=== PATIENT | male | born 1970 | race Caucasian/White ===

== ENCOUNTER 2018-09-25 22:08 | Inpatient (IN) | payer OTHER ==
[~2018-09-25] VITALS: Ht 180.3 cm; Wt 92.5 kg
[2018-09-25] MEDS ORDERED: HEPARIN for IV BOLUS 10,000 UNIT/10 ML VIAL. ONE (22:18)
[2018-09-25] MEDS ORDERED: fentaNYL PF VIAL 100 MCG/2 ML VIAL ONE ×2 (22:19→22:48)
[2018-09-25] MEDS ORDERED: NITROGLYCERIN SUBLINGUAL 0.4 MG BOTTLE OF 25. SL ONE (22:27)
[2018-09-25 22:30] LABS: BASO # 0.1 x10^3/uL (0.0-0.2); BASO % 1 % (0-3); EOS # 0.2 x10^3/uL (0.0-0.7); EOS % 2 % (0-3); HEMATOCRIT 51.1 % (39.0-53.0); HEMOGLOBIN 17.2 g/dL (13.0-17.5); LYMPH # 2.2 x10^3/uL (1.0-4.8); LYMPH % 21 % (24-48); MEAN CORPUSCULAR HEMOGLOBIN 30 pg (25-35); MEAN CORPUSCULAR HGB CONC 34 g/dL (31-37); MEAN CORPUSCULAR VOLUME 89 fL (79-100); MONO # 1.1 x10^3/uL (0.0-1.1); MONO % 10 % (0-9); NEUT # 7.3 x10^3uL (1.8-7.7); NEUT % 67 % (31-73); PLATELET COUNT 185 x10^3/uL (140-400); RED BLOOD COUNT 5.72 x10^6/uL (4.30-5.70); RED CELL DISTRIBUTION WIDTH 13.7 % (11.5-14.5); WHITE BLOOD COUNT 10.9 x10^3/uL (4.0-11.0)
[2018-09-25] MEDS ORDERED: NITROGLYCERIN SUBLINGUAL 0.4 MG BOTTLE OF 25. SL PRN ×2 (22:30)
[2018-09-25] MEDS ORDERED: fentaNYL PF VIAL 100 MCG/2 ML VIAL IV ONE ×2 (22:30→23:45)
[2018-09-25] MEDS ORDERED: ASPIRIN CHEWABLE 81 MG TABLET. PO ONE (22:30)
[2018-09-25] MEDS ORDERED: HEPARIN for IV BOLUS 10,000 UNIT/10 ML VIAL. IV ONE (22:30)
[2018-09-25 22:35] LABS: BARBITURATES NEG (NEG); BENZODIAZEPINES NEG (NEG); CANNABINOIDS NEG (NEG); COCAINE NEG (NEG); METHADONE NEG (NEG); OPIATES NEG (NEG); PHENCYCLIDINE NEG (NEG)
[2018-09-25 22:36] LABS: AMPHETAMINE/METHAMPHETAMINE NEG (NEG)
[2018-09-25 22:39] LABS: CALCIUM 9.9 mg/dL (8.5-10.1); CREATININE 1.3 mg/dL (0.7-1.3); GFR 58.4; POTASSIUM 3.6 mmol/L (3.5-5.1); PROTHROMBIN TIME PATIENT 12.3 SEC (11.7-14.0)
[2018-09-25] MEDS ORDERED: LIDOCAINE 1% Multi-Dose 20 ML VIAL. ONE (22:40)
[2018-09-25] MEDS ORDERED: IODIXANOL 320 MG/ML 100 ML VIAL. ONE ×2 (22:40→23:15)
[2018-09-25 22:46] LABS: ALBUMIN 4.2 g/dL (3.4-5.0); ALBUMIN/GLOBULIN RATIO 1.2 (1.0-1.7); MAGNESIUM 1.7 mg/dL (1.8-2.4); TOTAL BILIRUBIN 0.6 mg/dL (0.2-1.0); TOTAL PROTEIN 7.6 g/dL (6.4-8.2)
[2018-09-25] MEDS ORDERED: MIDAZOLAM HCL/PF 5 MG/5 ML VIAL. ONE (22:48)
[2018-09-25] MEDS ORDERED: BIVALIRUDIN 250 MG VIAL. IV ONE ×2 (22:48→23:45)
--- NOTE | 2018-09-25 22:53 | PDOC2 ---
CONSULT Date of Consult Date of Consult DATE: 09/25/18 TIME: 22:53 Reason for Consult Reason for Consult: acute myocardial infarction Referring Physician Referring Physician: Dr. Apple Identification/Chief Complaint Chief Complaint Chest pain Source Source: Chart review, Patient History of Present Illness Reason for Visit: 48-year-old male without any previous cardiac history presented with left-sided chest, shoulder and jaw pain starting one hour prior to presentation. This was associated with nausea and diaphoresis. He had similar episode yesterday night that resolved spontaneously. He has history of kidney transplantation approximately 10 years ago and has been on chronic immunosuppression. He has strong family history of premature coronary artery disease. Past Medical History Past Medical History Hypertension Renal insufficiency s/p kidney transplantation 10 years ago at [facility] Past Surgical History Past Surgical History Renal transplantation Family History Family History Strongly positive for premature coronary artery disease Social History Social History Patient she was tobacco occasionally and admitted to social intake of alcohol over the weekends but denied any drug abuse Current Medications Current Medications Current Medications Heparin Sodium (Porcine) (Heparin Sodium) 10,000 unit STK-MED ONCE .ROUTE ; Start 09/25/18 at 22:18; Stop 09/25/18 at 22:19; Status DC Fentanyl Citrate (Fentanyl 2ml Vial) 100 mcg STK-MED ONCE .ROUTE ; Start 09/25/18 at 22:19; Stop 09/25/18 at 22:20; Status DC Aspirin (Children'S Aspirin) 324 mg 1X ONCE PO Last administered on 09/25/18at 22:23; Start 09/25/18 at 22:30; Stop 09/25/18 at 22:33; Status DC Heparin Sodium (Porcine) (Heparin Sodium) 4,000 unit 1X ONCE IV Last administered on 09/25/18at 22:24; Start 09/25/18 at 22:30; Stop 09/25/18 at 22:33; Status DC Fentanyl Citrate (Fentanyl 2ml Vial) 50 mcg 1X ONCE IV Last administered on 09/25/18at 22:23; Start 09/25/18 at 22:30; Stop 09/25/18 at 22:33; Status DC Nitroglycerin (Nitrostat) 0.4 mg STK-MED ONCE SL ; Start 09/25/18 at 22:27; Stop 09/25/18 at 22:28; Status DC Nitroglycerin (Nitrostat) 0.4 mg PRN Q5MIN PRN SL CHEST PAIN Last administered on 09/25/18at 22:30; Start 09/25/18 at 22:30 Nitroglycerin (Nitrostat) 0.4 mg PRN Q5MIN PRN SL CHEST PAIN; Start 09/25/18 at 22:30 Iodixanol (Visipaque 320) 100 ml STK-MED ONCE .ROUTE ; Start 09/25/18 at 22:40; Stop 09/25/18 at 22:41; Status DC Lidocaine HCl (Lidocaine 1% 20ml Vial) 20 ml STK-MED ONCE .ROUTE ; Start 09/25/18 at 22:40; Stop 09/25/18 at 22:41; Status DC Heparin Sodium/ Sodium Chloride 1,000 ml @ As Directed STK-MED ONCE .ROUTE ; Start 09/25/18 at 22:40; Stop 09/25/18 at 22:41; Status DC Fentanyl Citrate (Fentanyl 2ml Vial) 100 mcg STK-MED ONCE .ROUTE ; Start 09/25/18 at 22:48; Stop 09/25/18 at 22:49; Status DC Midazolam HCl (Versed) 5 mg STK-MED ONCE .ROUTE ; Start 09/25/18 at 22:48; Stop 09/25/18 at 22:49; Status DC Bivalirudin (Angiomax) 250 mg STK-MED ONCE IV ; Start 09/25/18 at 22:48; Stop 09/25/18 at 22:49; Status DC Allergies Allergies: Coded Allergies: No Known Drug Allergies (Unverified , 02/02/15) ROS PSYCHOLOGICAL ROS: No: Hallucinations Eyes: No Loss of vision HEENT: No: Epistaxis Respiratory: No: Hemoptysis Cardiovascular: yes Chest Pain Gastrointestinal: Yes Nausea; No Vomiting Genitourinary: No Hematuria Neurological: No Seizures Skin: No Rash Physical Exam General: Alert, Oriented X3 HEENT: Atraumatic, PERRLA Lungs: Clear to auscultation Heart: Regular rate Abdomen: Soft, No tenderness Extremities: No edema Psych/Mental Status: Mood NL Vitals VITALS Vital Signs Date Time Temp Pulse Resp B/P (MAP) Pulse Ox O2 Delivery O2 Flow Rate FiO2 09/25/18 22:30 87 187/125 Labs Labs Laboratory Tests Test 09/25/18 22:20 White Blood Count 10.9 x10^3/uL (4.0-11.0) Red Blood Count 5.72 x10^6/uL (4.30-5.70) Hemoglobin 17.2 g/dL (13.0-17.5) Hematocrit 51.1 % (39.0-53.0) Mean Corpuscular Volume 89 fL (79-100) Mean Corpuscular Hemoglobin 30 pg (25-35) Mean Corpuscular Hemoglobin Concent 34 g/dL (31-37) Red Cell Distribution Width 13.7 % (11.5-14.5) Platelet Count 185 x10^3/uL (140-400) Neutrophils (%) (Auto) 67 % (31-73) Lymphocytes (%) (Auto) 21 % (24-48) Monocytes (%) (Auto) 10 % (0-9) Eosinophils (%) (Auto) 2 % (0-3) Basophils (%) (Auto) 1 % (0-3) Neutrophils # (Auto) 7.3 x10^3uL (1.8-7.7) Lymphocytes # (Auto) 2.2 x10^3/uL (1.0-4.8) Monocytes # (Auto) 1.1 x10^3/uL (0.0-1.1) Eosinophils # (Auto) 0.2 x10^3/uL (0.0-0.7) Basophils # (Auto) 0.1 x10^3/uL (0.0-0.2) Prothrombin Time 12.3 SEC (11.7-14.0) Prothromb Time International Ratio 0.9 (0.8-1.1) Sodium Level 139 mmol/L (136-145) Potassium Level 3.6 mmol/L (3.5-5.1) Chloride Level 101 mmol/L (98-107) Carbon Dioxide Level 30 mmol/L (21-32) Anion Gap 8 (6-14) Blood Urea Nitrogen 13 mg/dL (8-26) Creatinine 1.3 mg/dL (0.7-1.3) Estimated GFR (Cockcroft-Gault) 58.4 BUN/Creatinine Ratio 10 (6-20) Glucose Level 111 mg/dL (70-99) Calcium Level 9.9 mg/dL (8.5-10.1) Magnesium Level 1.7 mg/dL (1.8-2.4) Total Bilirubin 0.6 mg/dL (0.2-1.0) Aspartate Amino Transf (AST/SGOT) 37 U/L (15-37) Alanine Aminotransferase (ALT/SGPT) 42 U/L (16-63) Alkaline Phosphatase 83 U/L (46-116) Troponin I Quantitative 1.017 ng/mL (0.000-0.055) PO-Rhd-P-Type Natriuretic Peptide 1243 pg/mL (0-124) Total Protein 7.6 g/dL (6.4-8.2) Albumin 4.2 g/dL (3.4-5.0) Albumin/Globulin Ratio 1.2 (1.0-1.7) Urine Opiates Screen Neg (NEG) Urine Methadone Screen Neg (NEG) Urine Barbiturates Neg (NEG) Urine Phencyclidine Screen Neg (NEG) Urine Amphetamine/Methamphetamine Neg (NEG) Urine Benzodiazepines Screen Neg (NEG) Urine Cocaine Screen Neg (NEG) Urine Cannabinoids Screen Neg (NEG) Urine Ethyl Alcohol Neg (NEG) Laboratory Tests Test 09/25/18 22:20 White Blood Count 10.9 x10^3/uL (4.0-11.0) Red Blood Count 5.72 x10^6/uL (4.30-5.70) Hemoglobin 17.2 g/dL (13.0-17.5) Hematocrit 51.1 % (39.0-53.0) Mean Corpuscular Volume 89 fL (79-100) Mean Corpuscular Hemoglobin 30 pg (25-35) Mean Corpuscular Hemoglobin Concent 34 g/dL (31-37) Red Cell Distribution Width 13.7 % (11.5-14.5) Platelet Count 185 x10^3/uL (140-400) Neutrophils (%) (Auto) 67 % (31-73) Lymphocytes (%) (Auto) 21 % (24-48) Monocytes (%) (Auto) 10 % (0-9) Eosinophils (%) (Auto) 2 % (0-3) Basophils (%) (Auto) 1 % (0-3) Neutrophils # (Auto) 7.3 x10^3uL (1.8-7.7) Lymphocytes # (Auto) 2.2 x10^3/uL (1.0-4.8) Monocytes # (Auto) 1.1 x10^3/uL (0.0-1.1) Eosinophils # (Auto) 0.2 x10^3/uL (0.0-0.7) Basophils # (Auto) 0.1 x10^3/uL (0.0-0.2) Prothrombin Time 12.3 SEC (11.7-14.0) Prothromb Time International Ratio 0.9 (0.8-1.1) Sodium Level 139 mmol/L (136-145) Potassium Level 3.6 mmol/L (3.5-5.1) Chloride Level 101 mmol/L (98-107) Carbon Dioxide Level 30 mmol/L (21-32) Anion Gap 8 (6-14) Blood Urea Nitrogen 13 mg/dL (8-26) Creatinine 1.3 mg/dL (0.7-1.3) Estimated GFR (Cockcroft-Gault) 58.4 BUN/Creatinine Ratio 10 (6-20) Glucose Level 111 mg/dL (70-99) Calcium Level 9.9 mg/dL (8.5-10.1) Magnesium Level 1.7 mg/dL (1.8-2.4) Total Bilirubin 0.6 mg/dL (0.2-1.0) Aspartate Amino Transf (AST/SGOT) 37 U/L (15-37) Alanine Aminotransferase (ALT/SGPT) 42 U/L (16-63) Alkaline Phosphatase 83 U/L (46-116) Troponin I Quantitative 1.017 ng/mL (0.000-0.055) GG-Lve-R-Type Natriuretic Peptide 1243 pg/mL (0-124) Total Protein 7.6 g/dL (6.4-8.2) Albumin 4.2 g/dL (3.4-5.0) Albumin/Globulin Ratio 1.2 (1.0-1.7) Urine Opiates Screen Neg (NEG) Urine Methadone Screen Neg (NEG) Urine Barbiturates Neg (NEG) Urine Phencyclidine Screen Neg (NEG) Urine Amphetamine/Methamphetamine Neg (NEG) Urine Benzodiazepines Screen Neg (NEG) Urine Cocaine Screen Neg (NEG) Urine Cannabinoids Screen Neg (NEG) Urine Ethyl Alcohol Neg (NEG) Assessment/Plan Assessment/Plan 1. Acute anterior wall ST elevation myocardial infarction. Patient stated that his chest pain is almost completely resolved at this time. EKG showed left bundle branch block and anterior ST elevations. We will proceed with emergent cardiac catheterization and primary PCI/stent placement. Risks and benefits were explained and he is agreeable. Start aspirin, heparin, beta blockers and statins. 2. Hypertension: Blood pressure elevated upon admission but is presently well- controlled. 3. s/p Renal transplantation: On chronic immunosuppression Thank you for your consultation HENOK HOFFMAN MD Sep 25, 2018 22:53
--- NOTE | 2018-09-25 22:53 | PDOC ---
MODERATE SEDATION ASSESSMENT RISKS/ALTERNATIVES Risks/Alternatives Risks and alternatives of this type of sedation and procedure discussed with: RISK/ALTERNATIVES: Patient H & P ON CHART H & P H & P on chart and reviewed for co-morbid conditions and appropriate labs. H&P ON CHART: Yes STATUS PREG STATUS ASSESSED: N/A MEDS/ALLERGIES REVIEWED Meds/Allergies Reviewed Medications and Allergies including time and route of recently administered narcotics and sedatives. MEDS/ALLERGIES REVIEWED: Yes ASA RATING ASA RATING: III AIRWAY ASSESSMENT Airway Assessment Airway patency, oral function limitations, presence of caps, crowns, dentures, partials, and ability to extend neck assessed. AIRWAY ASSESSMENT: Yes MALLAMPATI SCORE MALLAMPATI SCORE: II PRE-SEDATION ASSESSMENT PRE-SEDATION ASSESSMENT: Yes HENOK HOFFMAN MD Sep 25, 2018 22:53
--- NOTE | 2018-09-25 23:25 | PHYS DOC ---
Past Medical History Past Medical History: Hypertension, Renal Failure, Other Additional Past Medical Histor: lupus,htn Past Surgical History: Other Additional Past Surgical Histo: kidney transplant 1009 Additional Information: Pt uses chewing tobacco daily Alcohol Use: Occasionally Additional Information: 5-8beers daily on weekend Drug Use: None Adult General Chief Complaint Chief Complaint: CHEST PAIN HPI HPI Patient is a 48 year old P/W ONE HOUR OF CHEST PAIN "CRAMP" CENTER OF CHEST JAW AND RIGHT SHOULDER NOT BACK. SUDDEN ONSET NO ABDO PAIN SWEATY HX OF KIDNEY TRANSPLANT ON TACROLIMUS, PREDNISONE, BP MEDS, NO CARDIAC HX FULL HX LIMITED BY ACUITY Review of Systems Review of Systems BANKS BY ACUITY Current Medications Current Medications Current Medications Medications (Trade) Dose Ordered Sig/Cresencio Start Time Stop Time Status Last Admin Dose Admin Fentanyl Citrate (Fentanyl 2ml Vial) 100 mcg STK-MED ONCE 09/25/18 22:19 4 22:20 DC Heparin Sodium (Porcine) (Heparin Sodium) 10,000 unit STK-MED ONCE 09/25/18 22:18 09/25/18 22:19 DC Allergies Allergies Allergies Coded Allergies Type Severity Reaction Last Updated Verified No Known Drug Allergies 02/02/15 No Physical Exam Physical Exam Constitutional: Well developed, ILL APPEARING SWEATY HENT: Normocephalic, atraumatic, bilateral external ears normal, oropharynx moist, no oral exudates, nose normal. [] Eyes: PERRLA, EOMI, conjunctiva normal, no discharge. [] Neck: Normal range of motion, no tenderness, supple, no stridor. [] Cardiovascular:Heart rate regular rhythm, no murmur [] Lungs & Thorax: Bilateral breath sounds clear to auscultation [] Abdomen: Bowel sounds normal, soft, no tenderness, no masses, no pulsatile masses. [] Skin: DIAPHORETIC Extremities: No tenderness, no cyanosis, no clubbing, ROM intact, no edema. [] Neurologic: Alert and oriented X 3, normal motor function, normal sensory function, no focal deficits noted. [] Psychologic: Affect normal, judgement normal, mood normal. [] Current Patient Data Vital Signs Vital Signs Date Time Temp Pulse Resp B/P (MAP) Pulse Ox O2 Delivery O2 Flow Rate FiO2 09/25/18 22:18 98.2 88 20 198/122 (147) 99 Room Air 98.2 Lab Values Laboratory Tests Test 09/25/18 22:20 White Blood Count 10.9 x10^3/uL (4.0-11.0) Red Blood Count 5.72 x10^6/uL (4.30-5.70) H Hemoglobin 17.2 g/dL (13.0-17.5) Hematocrit 51.1 % (39.0-53.0) Mean Corpuscular Volume 89 fL (79-100) Mean Corpuscular Hemoglobin 30 pg (25-35) Mean Corpuscular Hemoglobin Concent 34 g/dL (31-37) Red Cell Distribution Width 13.7 % (11.5-14.5) Platelet Count 185 x10^3/uL (140-400) Neutrophils (%) (Auto) 67 % (31-73) Lymphocytes (%) (Auto) 21 % (24-48) L Monocytes (%) (Auto) 10 % (0-9) H Eosinophils (%) (Auto) 2 % (0-3) Basophils (%) (Auto) 1 % (0-3) Neutrophils # (Auto) 7.3 x10^3uL (1.8-7.7) Lymphocytes # (Auto) 2.2 x10^3/uL (1.0-4.8) Monocytes # (Auto) 1.1 x10^3/uL (0.0-1.1) Eosinophils # (Auto) 0.2 x10^3/uL (0.0-0.7) Basophils # (Auto) 0.1 x10^3/uL (0.0-0.2) Prothrombin Time 12.3 SEC (11.7-14.0) Prothrombin Time INR 0.9 (0.8-1.1) Sodium Level 139 mmol/L (136-145) Potassium Level 3.6 mmol/L (3.5-5.1) Chloride Level 101 mmol/L (98-107) Carbon Dioxide Level 30 mmol/L (21-32) Anion Gap 8 (6-14) Blood Urea Nitrogen 13 mg/dL (8-26) Creatinine 1.3 mg/dL (0.7-1.3) Estimated GFR (Cockcroft-Gault) 58.4 BUN/Creatinine Ratio 10 (6-20) Glucose Level 111 mg/dL (70-99) H Calcium Level 9.9 mg/dL (8.5-10.1) Magnesium Level 1.7 mg/dL (1.8-2.4) L Total Bilirubin 0.6 mg/dL (0.2-1.0) Aspartate Amino Transferase (AST) 37 U/L (15-37) Alanine Aminotransferase (ALT) 42 U/L (16-63) Alkaline Phosphatase 83 U/L (46-116) Troponin I Quantitative 1.017 ng/mL (0.000-0.055) IQ-Sha-Y-Type Natriuretic Peptide 1243 pg/mL (0-124) H Total Protein 7.6 g/dL (6.4-8.2) Albumin 4.2 g/dL (3.4-5.0) Albumin/Globulin Ratio 1.2 (1.0-1.7) Urine Opiates Screen Neg (NEG) Urine Methadone Screen Neg (NEG) Urine Barbiturates Neg (NEG) Urine Phencyclidine Screen Neg (NEG) Urine Amphetamine/Methamphetamine Neg (NEG) Urine Benzodiazepines Screen Neg (NEG) Urine Cocaine Screen Neg (NEG) Urine Cannabinoids Screen Neg (NEG) Urine Ethyl Alcohol Neg (NEG) Laboratory Tests 09/25/18 22:20 Laboratory Tests 09/25/18 22:20 EKG EKG STEMI REVIEWED TWO MINUTES AFTER IT WAS DONE ANTERIOR AND LATERAL [address] ELEV ACTIVATED STEMI RIGHT AWAY[] AND DALTON CALLED BACK IN ABOUT 2 MINUTES Radiology/Procedures Radiology/Procedures [] Impressions: CXR NEG ACUTE MYREAD Course & Med Decision Making Course & Med Decision Making Pertinent Labs and Imaging studies reviewed. (See chart for details) []STEMI BP HIGH GAVE NITRO IT GOT BETTER PASNOORI AT BEDSIDE IN THE ER, PT TRANSFERRED TO DEICER INSPECTOR PNEUMATIC GUARDED BUT STABLE OVERALL PAIN WAS IMPROVED. Critical care time was 35 minutes exclusive of procedures. D/W DINA FOR ADMIT Macie Disclaimer Dragon Disclaimer This electronic medical record was generated, in whole or in part, using a voice recognition dictation system. Departure Departure Impression: Primary Impression: ST elevation (STEMI) myocardial infarction Disposition: 09 ADMITTED INPATIENT Admitting Physician: Heather Quinteros Condition: GUARDED Referrals: TAMERA GLASS M.D. (PCP) BINA ZARAGOZA MD Sep 25, 2018 23:25
[2018-09-25] MEDS ORDERED: PRASUGREL 10 MG TABLET. ONE (23:34)
[2018-09-25] MEDS ORDERED: PRASUGREL 10 MG TABLET. PO ONE (23:45)
[2018-09-25] MEDS ORDERED: LIDOCAINE 1% Multi-Dose 20 ML VIAL. INJ ONE (23:45)
[2018-09-25] MEDS ORDERED: IODIXANOL 320 MG/ML 100 ML VIAL. IART ONE (23:45)
[2018-09-25] MEDS ORDERED: NITROGLYCERIN 200 MCG/2 ML SYRINGE FOR CATH/VASC LAB. IART ONE (23:45)
[2018-09-25] MEDS ORDERED: IV NORMAL SALINE 1000ML BAG 1,000 ML IV ONE (23:45)
[2018-09-25] MEDS ORDERED: MIDAZOLAM HCL/PF 5 MG/5 ML VIAL. IV ONE (23:45)
[2018-09-25 23:59] VITALS: BP 141/98
[2018-09-26] VITALS (19 sets, daily range): BP systolic 108–150; BP diastolic 65–103
[2018-09-26] MEDS ORDERED: NITROGLYCERIN 200 MCG/2 ML SYRINGE FOR CATH/VASC LAB. ICAR ONE
[2018-09-26] MEDS ORDERED: NITROGLYCERIN SUBLINGUAL 0.4 MG BOTTLE OF 25. SL PRN
[2018-09-26] MEDS ORDERED: fentaNYL PF VIAL 100 MCG/2 ML VIAL IV PRN
[2018-09-26] MEDS ORDERED: ACETAMINOPHEN 325 MG TABLET. PO PRN
--- NOTE | 2018-09-26 00:30 | NUR ---
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 and family at the bedside. Right groin visualized with mill labor supervisor personal with shadowing and marked. Right leg is warm with good pedal pulse. Pt denies any chest pain at this time. Admission process completed. Pt is in SR with BBB.
[2018-09-26] MEDS ORDERED: ONDANSETRON PF 4 MG/2 ML VIAL. IV PRN ×2 (01:30→08:15)
--- NOTE | 2018-09-26 01:30 | NUR ---
Pt c/o nausea, Dr. Jones called and new orders received for zofran. Also informed Dr. Jones of elevated blood pressure and was instructed to give coreg and lisinopril if blood pressure continues to remain high.
--- NOTE | 2018-09-26 01:45 | NUR ---
Right groin check and dressing now saturated with oozing out of the side of dressing. Dressing removed and site visualized. No hematoma noted but a steady ooze of blood noted to come from the cath site. Pressure held for 15 minutes with small amount of bleeding. Area cleaned, V pad placed on site with new opsite. Will continue to monitor site.
--- NOTE | 2018-09-26 02:40 | NUR ---
Pt continues to c/o nausea and right groin site continues to ooze. Direct pressure held for at least 10 minutes and pressure dressing applied with a [address] Jones notified and new orders received to give pepcid and to continue to monitor right groin.
[2018-09-26] MEDS ORDERED: FAMOTIDINE 20 MG/2 ML VIAL IVP ONE (03:00)
--- NOTE | 2018-09-26 04:32 | NUR ---
Right groin cath site continues to ooze. Saturated pressure dressing removed and site cleaned. V pad and new pressure dressing applied. Right leg remains warm with a strong pedal pulse.
--- NOTE | 2018-09-26 05:45 | NUR ---
Right groin cath site saturated, area cleaned and new pressure dressing applied.
--- NOTE | 2018-09-26 06:37 | EKG ---
[facility] [address] [place] [address] Test Date: 2018-09-25 Test Time: 22:14:52 Pat Name: VIVIAN BARNES Department: Room: 108 1 Gender: M Cone Picker: : [phone] Requested By: BINA ZARAGOZA Order Number: [id number] Reading MD: Donnell Lo Measurements Intervals [place] Rate: 82 P: 35 HI: 184 QRS: -10 QRSD: 152 T: 12 QT: 378 QTc: 445 Interpretive Statements SINUS RHYTHM POSSIBLE ANTERIOR STEMI Electronically Signed On 10-02-2018 11:25:01 CDT by Donnell Lo
--- NOTE | 2018-09-26 07:08 | CARD ---
MR#: [id number] Date of Study: 09/25/2018 Ordering Physician: BINA ZARAGOZA, Referring Physician: SOFÍA ARROYO, Tech: RT Dao (R) APPROVED REPORT Technologist: RT Dao (R) CINTHIA Nurse: Courtney Hernandez R.N. Procedure(s) performed: 1. Left heart catheterization, selective coronary angiography and left ventr iculography 2. Successful PCI/drug eluting stent placement to the left anterior descending artery and successful balloon PTCA to the diagonal branch Mod sed: 60 Min fluoro time: 12.1 min dap: 152.38 Gycm2 Contrast total: 250ml INDICATION The indication(s) include : Acute anterior wall ST elevation myocardial infarction. [facility] Clinical Frailty Scale [facility] Clinical Frailty Scale: Very Fit Heart Failure Heart Failure: No PROCEDURE NARRATIVE After explaining the risks, benefits and alternative options, informed consent was obtained from gomez ent. Patient was brought to the cardiac Cabin Crew and his right groin was prepped and draped in the us ual fashion. 20 mL of 2% lidocaine was infiltrated into the skin and subcutaneous tissues for local a nesthesia. Arterial access was obtained the right common femoral artery and a 6 Libyan sheath was ins erted. 6 Libyan JL4 and 6 Libyan JR4 catheters were used to perform selective angiography of the left and right coronary arteries. 6 [place]yan pigtail catheter was used to perform left ventriculography at the end of procedure. The following findings were noted. FINDINGS 1. Hemodynamics: Left ventricle end-diastolic pressure 16 mmHg. No pullback gradient across the aor tic valve. 2. Left ventriculography: Hypokinesis of the distal anterior wall and the entire apical wall with e jection fraction estimated at 40%. No significant mitral regurgitation was seen. 3. Coronary angiography: a. The left main coronary artery arose from the left sinus of Valsalva, gave rise to the left anteri or descending and left circumflex arteries and did not show any significant stenosis. b. The left anterior descending artery showed 100% occlusion in the midsegment. c. The left circumflex artery showed 40% stenosis in a moderate caliber first obtuse marginal branch and 99% stenosis involving the proximal segment of a small caliber third obtuse marginal branch. d. The right coronary artery was a large and dominant vessel arising from the right sinus of Valsalv a that did not show any significant stenosis. INTERVENTION The left main coronary artery was engaged with a 6 Libyan EBU 3.5 guide catheter and the occlusion in the midsegment of the left anterior descending artery was crossed with a 0.014 inch [employer] water guidewire. This was predilated with a 2.5 x 12 mm trek balloon. The long lesion was successfully rony esa with overlapping 2.5 x 15 mm and 2.75 x 38 mm resolute isa drug eluting stents, the proximal por tion extending across the takeoff of a large diagonal branch. The stent struts were then crossed into the diagonal branch with the same guidewire and a struts and proximal segment of the diagonal branch dilated with a 2.5 x 8 mm noncompliant NC trek balloon. Follow-up angiography showed resolution of t he stenosis to 0% with JOSI-3 distal flow. Patient tolerated the procedure well. Hemostasis was achie hannah using Angio-Seal. There were no immediate complications. JOSI Flow JOSI Flow (Pre-Intervention): JOSI-0 JOSI Flow (Post-Intervention): JOSI-3 Conclusion 1. 100% occlusion of the left anterior descending artery, culprit vessel for patient's acute myocard ial infarction. He also had 99% stenosis involving a small-caliber third obtuse marginal branch that would be managed medically. 2. Successful PCI/drug eluting stent placement to the left anterior descending artery And successful balloon PTCA to the diagonal branch. 3. Hypokinesis of the distal anterior wall and the entire apical wall with ejection fraction estimat ed at 40%. Recommendations 1. Aspirin 325 mg daily 2. Prasugrel 10 mg daily for preferably one year 3. Cardiovascular risk factor modification Signed by : Peng Jones, Electronically Approved : 09/26/2018 07:07:34
--- NOTE | 2018-09-26 07:36 | RAD ---
Examination: PORTABLE CHEST 1V History: shortness of breath Comparison/Correlation: 03/06/2008 portable chest x-ray exam Findings: Portable upright frontal view of the chest was obtained. Heart size and pulmonary vasculature are normal. No pneumothorax. Minimal left costophrenic angle blunting is present. Flattening of the left hemidiaphragm is present. Possibility of a small left pleural effusion is raised. Bony structures are unremarkable. Impression: No infiltrate. Small left pleural effusion is suspected. Electronically signed by: Alvaro Lazo MD (09/26/2018 7:33 AM) [facility]
[2018-09-26] MEDS ORDERED: IV NORMAL SALINE 1000ML BAG 1,000 ML IV SCH ×2 (08:00)
[2018-09-26] MEDS ORDERED: ONDANSETRON ODT 4 MG TAB.RAPDIS. PO PRN (08:15)
[2018-09-26] MEDS ORDERED: ACETAMINOPHEN/CODEINE 300/30MG TABLET. PO PRN (08:15)
[2018-09-26] MEDS ORDERED: LISINOPRIL 5 MG TABLET. PO SCH (09:00)
[2018-09-26] MEDS ORDERED: METO-239 PO (09:13)
[2018-09-26] MEDS ORDERED: PRED2.5T PO (09:14)
[2018-09-26] MEDS: CARVEDILOL 6.25 MG TABLET. PO SCH ×2 (09:19→16:44)
[2018-09-26] MEDS: ASPIRIN ENTERIC COATED 325 MG TABLET.DR. PO SCH (09:20)
[2018-09-26] MEDS: PRASUGREL 10 MG TABLET. PO SCH (09:20)
[2018-09-26] MEDS ORDERED: TACR1CAP4 PO (09:37)
[2018-09-26] MEDS ORDERED: CETI10TA22 PO (09:37)
[2018-09-26] MEDS ORDERED: MYCO360T PO (09:37)
[2018-09-26 09:45] LABS: HEMATOCRIT 48.1 % (39.0-53.0); RED BLOOD COUNT 5.38 x10^6/uL (4.30-5.70); RED CELL DISTRIBUTION WIDTH 13.5 % (11.5-14.5); WHITE BLOOD COUNT 9.7 x10^3/uL (4.0-11.0)
[2018-09-26 09:57] LABS: PROTHROMBIN TIME PATIENT 13.4 SEC (11.7-14.0)
[2018-09-26 10:05] LABS: ALBUMIN 3.5 g/dL (3.4-5.0); ALBUMIN/GLOBULIN RATIO 1.2 (1.0-1.7); CALCIUM 9.4 mg/dL (8.5-10.1); GFR 79.1; MAGNESIUM 1.6 mg/dL (1.8-2.4); POTASSIUM 3.9 mmol/L (3.5-5.1); TOTAL BILIRUBIN 1.1 mg/dL (0.2-1.0); TOTAL PROTEIN 6.4 g/dL (6.4-8.2)
[2018-09-26 10:15] LABS: CHOLESTEROL/HDL RATIO 3.1
--- NOTE | 2018-09-26 10:20 | PDOC1 ---
History and Physical Date of Admission Date of Admission DATE: 09/26/18 TIME: 10:16 Identification/Chief Complaint Chief Complaint chest pain Source Source: Caregiver, Chart review, Patient History of Present Illness History of Present Illness 48-year-old white male history of renal transplant on immunosuppressants, left- sided chest pain at rest moved to the jaw left shoulder. SOA, diaphoresis, Strong family history of AR. Nonsmoker. STEMI on EKG. Underwent stat LHC with successful PCI /drug eluting stent placement to the left anterior descending artery and successful balloon PTCA to the diagonal branch.Seen in icu, VS good, CP free, comfortable, I have reconciled home meds. Creat normal with GFR 58 Past Medical History Renal/: Chronic renal failure, Other (renal transplant) Past Surgical History Past Surgical History: Other (renal transplant) Family History Family History: Heart Disease Social History Smoke: No ALCOHOL: none Drugs: None Current Problem List Problem List Problems Medical Problems: (1) ST elevation (STEMI) myocardial infarction Status: Acute Current Medications Current Medications Current Medications Heparin Sodium (Porcine) (Heparin Sodium) 10,000 unit STK-MED ONCE .ROUTE ; Start 09/25/18 at 22:18; Stop 09/25/18 at 22:19; Status DC Fentanyl Citrate (Fentanyl 2ml Vial) 100 mcg STK-MED ONCE .ROUTE ; Start 09/25/18 at 22:19; Stop 09/25/18 at 22:20; Status DC Aspirin (Children'S Aspirin) 324 mg 1X ONCE PO Last administered on 09/25/18at 22:23; Start 09/25/18 at 22:30; Stop 09/25/18 at 22:33; Status DC Heparin Sodium (Porcine) (Heparin Sodium) 4,000 unit 1X ONCE IV Last administered on 09/25/18at 22:24; Start 09/25/18 at 22:30; Stop 09/25/18 at 22:33; Status DC Fentanyl Citrate (Fentanyl 2ml Vial) 50 mcg 1X ONCE IV Last administered on 09/25/18at 22:23; Start 09/25/18 at 22:30; Stop 09/25/18 at 22:33; Status DC Nitroglycerin (Nitrostat) 0.4 mg STK-MED ONCE SL ; Start 09/25/18 at 22:27; Stop 09/25/18 at 22:28; Status DC Nitroglycerin (Nitrostat) 0.4 mg PRN Q5MIN PRN SL CHEST PAIN Last administered on 09/25/18at 22:30; Start 09/25/18 at 22:30; Stop 09/26/18 at 00:00; Status DC Nitroglycerin (Nitrostat) 0.4 mg PRN Q5MIN PRN SL CHEST PAIN; Start 09/25/18 at 22:30; Stop 09/26/18 at 00:00; Status DC Iodixanol (Visipaque 320) 100 ml STK-MED ONCE .ROUTE ; Start 09/25/18 at 22:40; Stop 09/25/18 at 22:41; Status DC Lidocaine HCl (Lidocaine 1% 20ml Vial) 20 ml STK-MED ONCE .ROUTE ; Start 09/25/18 at 22:40; Stop 09/25/18 at 22:41; Status DC Heparin Sodium/ Sodium Chloride 1,000 ml @ As Directed STK-MED ONCE .ROUTE ; Start 09/25/18 at 22:40; Stop 09/25/18 at 22:41; Status DC Fentanyl Citrate (Fentanyl 2ml Vial) 100 mcg STK-MED ONCE .ROUTE ; Start 09/25/18 at 22:48; Stop 09/25/18 at 22:49; Status DC Midazolam HCl (Versed) 5 mg STK-MED ONCE .ROUTE ; Start 09/25/18 at 22:48; Stop 09/25/18 at 22:49; Status DC Bivalirudin (Angiomax) 250 mg STK-MED ONCE IV ; Start 09/25/18 at 22:48; Stop 09/25/18 at 22:49; Status DC Iodixanol (Visipaque 320) 100 ml STK-MED ONCE .ROUTE ; Start 09/25/18 at 23:15; Stop 09/25/18 at 23:16; Status DC Heparin Sodium/ Sodium Chloride (HEPARIN for ARTERIAL LINE FLUSH) 1,000 unit 1X ONCE IART Last administered on 09/25/18at 23:57; Start 09/25/18 at 23:45; Stop 09/25/18 at 23:46; Status DC Midazolam HCl (Versed) 5 mg 1X ONCE IV Last administered on 09/25/18at 23:59; Start 09/25/18 at 23:45; Stop 09/25/18 at 23:46; Status DC Fentanyl Citrate (Fentanyl 2ml Vial) 100 mcg 1X ONCE IV Last administered on 09/25/18 23:58; Start 09/25/18 at 23:45; Stop 09/25/18 at 23:46; Status DC Iodixanol (Visipaque 320) 100 ml 1X ONCE IART Last administered on 09/25/18at 23:57; Start 09/25/18 at 23:45; Stop 09/25/18 at 23:46; Status DC Bivalirudin (Angiomax) 250 mg 1X ONCE IV Last administered on 09/25/18at 23:58; Start 09/25/18 at 23:45; Stop 09/25/18 at 23:46; Status DC Lidocaine HCl (Lidocaine 1% 20ml Vial) 20 ml 1X ONCE INJ Last administered on 09/25/18at 23:57; Start 09/25/18 at 23:45; Stop 09/25/18 at 23:46; Status DC Prasugrel (Effient) 10 mg STK-MED ONCE .ROUTE ; Start 09/25/18 at 23:34; Stop 09/25/18 at 23:35; Status DC Prasugrel (Effient) 60 mg 1X ONCE PO Last administered on 09/25/18at 23:59; Start 09/25/18 at 23:45; Stop 09/25/18 at 23:46; Status DC Sodium Chloride 1,000 ml @ 100 mls/hr 1X ONCE IV Last administered on 09/25/18at 23:59; Start 09/25/18 at 23:45; Stop 09/26/18 at 09:44; Status DC Sodium Chloride 1,000 ml @ 100 mls/hr Q10H IV Last administered on 09/26/18at 00:00; Start 09/26/18 at 00:00; Stop 09/26/18 at 09:59; Status DC Aspirin (Ecotrin) 325 mg DAILYWBKFT PO Last administered on 09/26/18 09:20; Start 09/26/18 at 08:00 Prasugrel (Effient) 10 mg DAILYWBKFT PO Last administered on 09/26/18 09:20; Start 09/26/18 at 08:00 Carvedilol (Coreg) 6.25 mg BIDWMEALS PO Last administered on 4/23/19at 09:19; Start 09/26/18 at 08:00 Lisinopril (Prinivil) 5 mg DAILY PO Last administered on 09/26/18at 09:20; Start 09/26/18 at 09:00 Atorvastatin Calcium (Lipitor) 40 mg QHS PO ; Start 09/26/18 at 21:00 Acetaminophen (Tylenol) 650 mg PRN Q6HRS PRN PO HEADACHE / TEMP; Start 09/26/18 at 00:00 Fentanyl Citrate (Fentanyl 2ml Vial) 50 mcg PRN Q1HR PRN IV MODERATE OR SEVERE PAIN; Start 09/26/18 at 00:00 Nitroglycerin (Nitrostat) 0.4 mg PRN Q5MIN PRN SL CHEST PAIN; Start 09/26/18 at 00:00 Nitroglycerin (Nitroglycerin) 200 mcg 1X ONCE IART ; Start 09/25/18 at 23:45; Stop 09/26/18 at 00:02; Status DC Nitroglycerin (Nitroglycerin) 200 mcg 1X ONCE ICAR ; Start 09/26/18 at 00:00; Stop 09/26/18 at 00:05; Status DC Ondansetron HCl (Zofran) 4 mg PRN Q6HRS PRN IV NAUSEA/VOMITING Last administered on 09/26/18at 01:53; Start 09/26/18 at 01:30; Stop 09/26/18 at 08:10; Status DC Famotidine (Pepcid Vial) 20 mg 1X ONCE IVP Last administered on 09/26/18at 02:53; Start 09/26/18 at 03:00; Stop 09/26/18 at 03:01; Status DC Sodium Chloride 1,000 ml @ 75 mls/hr [id number] IV Last administered on 09/26/18at 09:10; Start 09/26/18 at 08:00 Ondansetron HCl (Zofran) 4 mg PRN Q6HRS PRN IV NAUSEA/VOMITING; Start 09/26/18 at 08:15 Ondansetron HCl (Zofran Odt) 4 mg PRN Q6HRS PRN PO NAUSEA/VOMITING; Start 09/26/18 at 08:15 Acetaminophen/ Codeine Phosphate (Tylenol #3) 1 tab PRN Q6HRS PRN PO PAIN; Start 09/26/18 at 08:15 Cetirizine HCl (ZyrTEC) 10 mg DAILY PO ; Start 09/27/18 at 09:00 Metoprolol Succinate (Toprol Xl) 50 mg DAILY PO ; Start 09/27/18 at 09:00; Status UNV Mycophenolate Sodium (Myfortic) 360 mg BID PO ; Start 09/26/18 at 10:00 Prednisone (Prednisone) 5 mg DAILY PO ; Start 09/27/18 at 09:00 Tacrolimus (Prograf) 1 mg BID PO ; Start 09/26/18 at 10:00 Active Scripts Active Reported Zyrtec (Cetirizine Hcl) 10 Mg Tablet 10 Mg PO DAILY Prograf (Tacrolimus) 1 Mg Capsule 1 Mg PO BID Myfortic (Mycophenolate Sodium) 360 Mg Tablet.dr 360 Mg PO BID Prednisone 2.5 Mg Tablet 5 Mg PO DAILY Metoprolol Succinate ( Xl ) (Metoprolol Succinate) 25 Mg Tab.er.24h 50 Mg PO DA NATANAEL Allergies Allergies: Coded Allergies: No Known Drug Allergies (Unverified , 02/02/15) ROS Review of System A 14 point ROS was completed with the following noted as positive: Other systems reviewed and negative. \CONSTITUTIONAL: No fever or chills EYES: No recent changes SKIN: No rash or itching CARDIOVASCULAR: RESPIRATORY: No SOB or cough GASTROINTESTINAL: No nausea, vomiting or abdominal pain NEUROLOGICAL: No headaches or weakness ENDOCRINE: No cold or heat intolerance GENITOURINARY: No urgency or frequency of urination MUSCULOSKELETAL: No back pain or joint pain LYMPHATICS: No enlarged lymph nodes PSYCHIATRIC: No anxiety or depression Physical Exam General: Alert, Oriented X3, Cooperative, No acute distress HEENT: Atraumatic, PERRLA, EOMI Lungs: Clear to auscultation, Normal air movement Heart: S1S2, RRR, no thrills, no rubs, no gallops, no murmurs Cardiovascular: S1, S2 Breasts: Normal, Rt breast nml w/o mass, Lt breast nml w/o mass, Nipples normal Abdomen: Normal bowel sounds, Soft, No tenderness, No hepatosplenomegaly, No m asses Male Genitals Exam: normal genitalia, normal prostate Extremities: No clubbing, No cyanosis, No edema, Normal pulses, No tenderness/swelling Skin: No rashes, No breakdown, No significant lesion Neuro: Normal gait, Normal speech, Strength at 5/5 X4 ext, Normal tone, Sensation intact, Cranial nerves 3-12 NL, Reflexes 2+ Psych/Mental Status: Mental status NL, Mood NL Vitals Vitals Vital Signs Date Time Temp Pulse Resp B/P (MAP) Pulse Ox O2 Delivery O2 Flow Rate FiO2 09/26/18 09:20 106 09/26/18 08:00 Room Air 09/26/18 06:00 17 117/91 (100) 97 09/26/18 04:00 97.6 97.6 Labs Labs Laboratory Tests Test 09/25/18 22:20 09/26/18 08:40 White Blood Count 10.9 x10^3/uL (4.0-11.0) 9.7 x10^3/uL (4.0-11.0) Red Blood Count 5.72 x10^6/uL (4.30-5.70) 5.38 x10^6/uL (4.30-5.70) Hemoglobin 17.2 g/dL (13.0-17.5) 16.0 g/dL (13.0-17.5) Hematocrit 51.1 % (39.0-53.0) 48.1 % (39.0-53.0) Mean Corpuscular Volume 89 fL (79-100) 89 fL (79-100) Mean Corpuscular Hemoglobin 30 pg (25-35) 30 pg (25-35) Mean Corpuscular Hemoglobin Concent 34 g/dL (31-37) 33 g/dL (31-37) Red Cell Distribution Width 13.7 % (11.5-14.5) 13.5 % (11.5-14.5) Platelet Count 185 x10^3/uL (140-400) 154 x10^3/uL (140-400) Neutrophils (%) (Auto) 67 % (31-73) Lymphocytes (%) (Auto) 21 % (24-48) Monocytes (%) (Auto) 10 % (0-9) Eosinophils (%) (Auto) 2 % (0-3) Basophils (%) (Auto) 1 % (0-3) Neutrophils # (Auto) 7.3 x10^3uL (1.8-7.7) Lymphocytes # (Auto) 2.2 x10^3/uL (1.0-4.8) Monocytes # (Auto) 1.1 x10^3/uL (0.0-1.1) Eosinophils # (Auto) 0.2 x10^3/uL (0.0-0.7) Basophils # (Auto) 0.1 x10^3/uL (0.0-0.2) Prothrombin Time 12.3 SEC (11.7-14.0) 13.4 SEC (11.7-14.0) Prothromb Time International Ratio 0.9 (0.8-1.1) 1.1 (0.8-1.1) Sodium Level 139 mmol/L (136-145) 139 mmol/L (136-145) Potassium Level 3.6 mmol/L (3.5-5.1) 3.9 mmol/L (3.5-5.1) Chloride Level 101 mmol/L (98-107) 104 mmol/L (98-107) Carbon Dioxide Level 30 mmol/L (21-32) 24 mmol/L (21-32) Anion Gap 8 (6-14) 11 (6-14) Blood Urea Nitrogen 13 mg/dL (8-26) 12 mg/dL (8-26) Creatinine 1.3 mg/dL (0.7-1.3) 1.0 mg/dL (0.7-1.3) Estimated GFR (Cockcroft-Gault) 58.4 79.1 BUN/Creatinine Ratio 10 (6-20) 12 (6-20) Glucose Level 111 mg/dL (70-99) 125 mg/dL (70-99) Calcium Level 9.9 mg/dL (8.5-10.1) 9.4 mg/dL (8.5-10.1) Magnesium Level 1.7 mg/dL (1.8-2.4) 1.6 mg/dL (1.8-2.4) Total Bilirubin 0.6 mg/dL (0.2-1.0) 1.1 mg/dL (0.2-1.0) Aspartate Amino Transf (AST/SGOT) 37 U/L (15-37) 428 U/L (15-37) Alanine Aminotransferase (ALT/SGPT) 42 U/L (16-63) 77 U/L (16-63) Alkaline Phosphatase 83 U/L (46-116) 70 U/L (46-116) Troponin I Quantitative 1.017 ng/mL (0.000-0.055) UK-Skb-J-Type Natriuretic Peptide 1243 pg/mL (0-124) Total Protein 7.6 g/dL (6.4-8.2) 6.4 g/dL (6.4-8.2) Albumin 4.2 g/dL (3.4-5.0) 3.5 g/dL (3.4-5.0) Albumin/Globulin Ratio 1.2 (1.0-1.7) 1.2 (1.0-1.7) Urine Opiates Screen Neg (NEG) Urine Methadone Screen Neg (NEG) Urine Barbiturates Neg (NEG) Urine Phencyclidine Screen Neg (NEG) Urine Amphetamine/Methamphetamine Neg (NEG) Urine Benzodiazepines Screen Neg (NEG) Urine Cocaine Screen Neg (NEG) Urine Cannabinoids Screen Neg (NEG) Urine Ethyl Alcohol Neg (NEG) Activated Partial Thromboplast Time 30 SEC (24-38) Triglycerides Level 110 mg/dL (0-150) Cholesterol Level 168 mg/dL (0-200) LDL Cholesterol, Calculated 91 mg/dL (0-100) VLDL Cholesterol, Calculated 22 mg/dL (0-40) Non-HDL Cholesterol Calculated 113 mg/dL (0-129) HDL Cholesterol 55 mg/dL (40-60) Cholesterol/HDL Ratio 3.1 Laboratory Tests Test 09/25/18 22:20 09/26/18 08:40 White Blood Count 10.9 x10^3/uL (4.0-11.0) 9.7 x10^3/uL (4.0-11.0) Red Blood Count 5.72 x10^6/uL (4.30-5.70) 5.38 x10^6/uL (4.30-5.70) Hemoglobin 17.2 g/dL (13.0-17.5) 16.0 g/dL (13.0-17.5) Hematocrit 51.1 % (39.0-53.0) 48.1 % (39.0-53.0) Mean Corpuscular Volume 89 fL (79-100) 89 fL (79-100) Mean Corpuscular Hemoglobin 30 pg (25-35) 30 pg (25-35) Mean Corpuscular Hemoglobin Concent 34 g/dL (31-37) 33 g/dL (31-37) Red Cell Distribution Width 13.7 % (11.5-14.5) 13.5 % (11.5-14.5) Platelet Count 185 x10^3/uL (140-400) 154 x10^3/uL (140-400) Neutrophils (%) (Auto) 67 % (31-73) Lymphocytes (%) (Auto) 21 % (24-48) Monocytes (%) (Auto) 10 % (0-9) Eosinophils (%) (Auto) 2 % (0-3) Basophils (%) (Auto) 1 % (0-3) Neutrophils # (Auto) 7.3 x10^3uL (1.8-7.7) Lymphocytes # (Auto) 2.2 x10^3/uL (1.0-4.8) Monocytes # (Auto) 1.1 x10^3/uL (0.0-1.1) Eosinophils # (Auto) 0.2 x10^3/uL (0.0-0.7) Basophils # (Auto) 0.1 x10^3/uL (0.0-0.2) Prothrombin Time 12.3 SEC (11.7-14.0) 13.4 SEC (11.7-14.0) Prothromb Time International Ratio 0.9 (0.8-1.1) 1.1 (0.8-1.1) Sodium Level 139 mmol/L (136-145) 139 mmol/L (136-145) Potassium Level 3.6 mmol/L (3.5-5.1) 3.9 mmol/L (3.5-5.1) Chloride Level 101 mmol/L (98-107) 104 mmol/L (98-107) Carbon Dioxide Level 30 mmol/L (21-32) 24 mmol/L (21-32) Anion Gap 8 (6-14) 11 (6-14) Blood Urea Nitrogen 13 mg/dL (8-26) 12 mg/dL (8-26) Creatinine 1.3 mg/dL (0.7-1.3) 1.0 mg/dL (0.7-1.3) Estimated GFR (Cockcroft-Gault) 58.4 79.1 BUN/Creatinine Ratio 10 (6-20) 12 (6-20) Glucose Level 111 mg/dL (70-99) 125 mg/dL (70-99) Calcium Level 9.9 mg/dL (8.5-10.1) 9.4 mg/dL (8.5-10.1) Magnesium Level 1.7 mg/dL (1.8-2.4) 1.6 mg/dL (1.8-2.4) Total Bilirubin 0.6 mg/dL (0.2-1.0) 1.1 mg/dL (0.2-1.0) Aspartate Amino Transf (AST/SGOT) 37 U/L (15-37) 428 U/L (15-37) Alanine Aminotransferase (ALT/SGPT) 42 U/L (16-63) 77 U/L (16-63) Alkaline Phosphatase 83 U/L (46-116) 70 U/L (46-116) Troponin I Quantitative 1.017 ng/mL (0.000-0.055) HP-Vth-M-Type Natriuretic Peptide 1243 pg/mL (0-124) Total Protein 7.6 g/dL (6.4-8.2) 6.4 g/dL (6.4-8.2) Albumin 4.2 g/dL (3.4-5.0) 3.5 g/dL (3.4-5.0) Albumin/Globulin Ratio 1.2 (1.0-1.7) 1.2 (1.0-1.7) Urine Opiates Screen Neg (NEG) Urine Methadone Screen Neg (NEG) Urine Barbiturates Neg (NEG) Urine Phencyclidine Screen Neg (NEG) Urine Amphetamine/Methamphetamine Neg (NEG) Urine Benzodiazepines Screen Neg (NEG) Urine Cocaine Screen Neg (NEG) Urine Cannabinoids Screen Neg (NEG) Urine Ethyl Alcohol Neg (NEG) Activated Partial Thromboplast Time 30 SEC (24-38) Triglycerides Level 110 mg/dL (0-150) Cholesterol Level 168 mg/dL (0-200) LDL Cholesterol, Calculated 91 mg/dL (0-100) VLDL Cholesterol, Calculated 22 mg/dL (0-40) Non-HDL Cholesterol Calculated 113 mg/dL (0-129) HDL Cholesterol 55 mg/dL (40-60) Cholesterol/HDL Ratio 3.1 VTE Prophylaxis Ordered VTE Prophylaxis Devices: Yes VTE Pharmacological Prophylaxi: Yes Assessment/Plan Assessment/Plan STEMI status post PCI CHANCE /drug eluting stent placement to the left anterior descending artery and successful balloon PTCA to the diagonal branch REnal transplant on immunosuppressants PLAN: cardiac Diet, lipid panel, follow cardiology recommendations I have reconciled home meds Right groin looks good 2 MN, echo STEMI protocol SOFÍA ARROYO MD Sep 26, 2018 10:20
[2018-09-26] MEDS: TACROLIMUS 0.5 MG CAPSULE PO SCH ×2 (11:17→20:48)
[2018-09-26] MEDS: MYCOPHENOLATE ACID 180 MG TABLET.DR. PO SCH ×2 (11:17→20:48)
--- NOTE | 2018-09-26 12:26 | CARD ---
MR#: [id number] Date of Study: 09/26/2018 Ordering Physician: HENOK HOFFMAN, Referring Physician: SOFÍA ARROYO Tech: Radhika Vogel [facility] APPROVED REPORT EXAM: Two-dimensional and M-mode echocardiogram with Doppler and color Doppler. Other Information Quality : Good INDICATION Myocardial Infarction 2D DIMENSIONS RVDd2.1 (2.9-3.5cm)Left Atrium(2D)3.7 (1.6-4.0cm) IVSd0.7 (0.7-1.1cm)Aortic Root(2D)3.3 (2.0-3.7cm) LVDd4.7 (3.9-5.9cm)LVOT Diameter2.2 (1.8-2.4cm) PWd0.8 (0.7-1.1cm)LVDs3.2 (2.5-4.0cm) FS (%) 32.5 %SV62.4 ml LVEF(%)60.8 (>50%) Aortic Valve AoV Peak Maxim.92.7cm/sAoV VTI13.9cm AO Peak GR.3.4mmHgLVOT VTI 11.73cm AO Mean GR.2mmHgAVA (VTI)3.10cm2 Mitral Valve MV E Hhepijov22.8cm/sMV DECEL [id number] MV A Fzhemqyd12.6cm/sE/A Ratio0.9 TDI Lateral E' P. V2.92cm/sMedial E' P. V2.19cm/s E/Lateral E'22.9E/Medial E'30.5 Pulmonary Vein S1 Hgpakieb60.1cm/sS2 Lmwispgw19.93cm/s D2 Avfahimr90.9cm/s LEFT VENTRICLE The left ventricle is normal size. There is normal left ventricular wall thickness. Left ventricle sy stolic function is severely impaired. EF 25-30%. The septum, apex, mid to distal anterior wall are se verely hypokinetic to akinetic consistent with LAD territory infarct. Transmitral Doppler flow patter n is Grade I-abnormal relaxation pattern. Cannot rule out small apical thrombus. RIGHT VENTRICLE The right ventricle is normal size. The right ventricular systolic function is normal. ATRIA The left atrium size is normal. The right atrium size is normal. The interatrial septum is intact wit h no evidence for an atrial septal defect or patent foramen ovale as noted on 2-D or Doppler imaging. AORTIC VALVE The aortic valve is calcified but opens well. Doppler and Color Flow revealed trace aortic regurgitat ion. There is no significant aortic valvular stenosis. MITRAL VALVE The mitral valve is calcified but opens well. There is no evidence of mitral valve prolapse. There is no mitral valve stenosis. Doppler and Color-flow revealed mild mitral regurgitation. TRICUSPID VALVE The tricuspid valve is normal in structure and function. Doppler and Color Flow revealed no tricuspid valve regurgitation noted. There is no tricuspid valve stenosis. PULMONIC VALVE The pulmonic valve is not well visualized. Doppler and Color Flow revealed trace pulmonic valvular re gurgitation. There is no pulmonic valvular stenosis. GREAT VESSELS The aortic root is normal in size. The ascending aorta is mildly dilated 3.5 cm. The IVC was not visu alized. PERICARDIAL EFFUSION There is no evidence of significant pericardial effusion. Critical Notification Critical Value: No <Conclusion> Left ventricle systolic function is severely impaired. EF 25-30%. The septum, apex, mid to distal anterior wall are severely hypokinetic to akinetic consistent with LA D territory infarct. Cannot rule out small apical thrombus. Doppler and Color-flow revealed mild mitral regurgitation. The ascending aorta is mildly dilated 3.5 cm. Signed by : Adarsh Charlton, Electronically Approved : 09/26/2018 12:25:41
[2018-09-26] MEDS ORDERED: MAGNESIUM SULFATE 2GM 50 ML IV ONE (14:30)
[2018-09-26] MEDS: NICOTINE POLACRILEX 2MG GUM PACKAGE of 12. BC PRN ×2 (14:44→19:45)
--- NOTE | 2018-09-26 19:20 | NUR ---
Pt in bed at bedside. Assessment completed vss poc explained pt denies pain at time of assessment. Call light in reach will resume care.
[2018-09-26] MEDS ORDERED: ATORVASTATIN CALCIUM 40 MG TABLET. ONE (20:26)
[2018-09-26] MEDS ORDERED: ATORVASTATIN CALCIUM 20 MG TABLET PO SCH (21:00)
[2018-09-27 02:51] VITALS: BP 112/64
[2018-09-27 05:57] LABS: HEMATOCRIT 43.7 % (39.0-53.0); HEMOGLOBIN 14.8 g/dL (13.0-17.5); RED BLOOD COUNT 4.88 x10^6/uL (4.30-5.70); RED CELL DISTRIBUTION WIDTH 13.5 % (11.5-14.5); WHITE BLOOD COUNT 9.6 x10^3/uL (4.0-11.0)
[2018-09-27 06:03] LABS: CALCIUM 8.7 mg/dL (8.5-10.1); CREATININE 1.1 mg/dL (0.7-1.3); GFR 70.9; POTASSIUM 3.6 mmol/L (3.5-5.1)
[2018-09-27 07:00] VITALS: BP 113/75
[2018-09-27] MEDS ORDERED: ATOR20TA58 PO (08:38)
[2018-09-27] MEDS ORDERED: ASPI325T11 PO (08:38)
[2018-09-27] MEDS ORDERED: PRAS10TA9 PO (08:38)
[2018-09-27] MEDS ORDERED: SACU1TAB PO (08:38)
[2018-09-27] MEDS ORDERED: SACUBITRIL/VALSARTAN 24/26MG TABLET. PO ONE (08:45)
[2018-09-27] MEDS: MYCOPHENOLATE ACID 180 MG TABLET.DR. PO SCH (08:54)
[2018-09-27] MEDS: TACROLIMUS 0.5 MG CAPSULE PO SCH (08:56)
[2018-09-27] MEDS ORDERED: METOPROLOL SUCC 24HR ER 25 MG TAB.ER.24H. PO SCH (09:00)
[2018-09-27] MEDS ORDERED: CETIRIZINE HCL 10 MG TABLET. PO SCH (09:00)
[2018-09-27] MEDS ORDERED: predniSONE 5 MG TABLET PO SCH (09:00)
[2018-09-27] MEDS ORDERED: METOPROLOL SUCC 24HR ER 50 MG TAB.ER.24H. PO SCH (09:00)
[2018-09-27] MEDS: PRASUGREL 10 MG TABLET. PO SCH (09:18)
[2018-09-27] MEDS: ASPIRIN ENTERIC COATED 325 MG TABLET.DR. PO SCH (09:18)
[2018-09-27] MEDS ORDERED: LISINOPRIL 5 MG TABLET. PO SCH (10:00)
--- NOTE | 2018-09-27 10:29 | PDOC ---
CHUY JARA [employer]T [employer]LE MAKER 09/27/18 1029: CARDIO Progress Notes Date and Time Date of Service 09/27/2018 Time of Evaluation 1010 Subjective Subjective: No Chest Pain, No shortness of breath, No Palpitations Vitals Vitals Vital Signs Date Time Temp Pulse Resp B/P (MAP) Pulse Ox O2 Delivery O2 Flow Rate FiO2 09/27/18 08:53 77 113/75 09/27/18 07:00 98.3 16 98 Room Air 98.3 Weight Weight [ ] Input and Output Intake and Output Intake and Output 09/27/18 06:59 Intake Total 2380 ml Output Total 2275 ml Balance 105 ml Intake Oral 980 ml IV Total 1400 ml Output Urine Total 2275 ml Laboratory Labs Laboratory Tests Test 09/27/18 05:05 White Blood Count 9.6 x10^3/uL (4.0-11.0) Red Blood Count 4.88 x10^6/uL (4.30-5.70) Hemoglobin 14.8 g/dL (13.0-17.5) Hematocrit 43.7 % (39.0-53.0) Mean Corpuscular Volume 90 fL (79-100) Mean Corpuscular Hemoglobin 30 pg (25-35) Mean Corpuscular Hemoglobin Concent 34 g/dL (31-37) Red Cell Distribution Width 13.5 % (11.5-14.5) Platelet Count 138 x10^3/uL (140-400) Sodium Level 137 mmol/L (136-145) Potassium Level 3.6 mmol/L (3.5-5.1) Chloride Level 103 mmol/L (98-107) Carbon Dioxide Level 24 mmol/L (21-32) Anion Gap 10 (6-14) Blood Urea Nitrogen 11 mg/dL (8-26) Creatinine 1.1 mg/dL (0.7-1.3) Estimated GFR (Cockcroft-Gault) 70.9 Glucose Level 102 mg/dL (70-99) Calcium Level 8.7 mg/dL (8.5-10.1) Magnesium Level 2.0 mg/dL (1.8-2.4) Physical Exam HEENT: Neck Supple W Full Motion Chest: Symmetric LUNGS: Clear to Auscultation Heart: S1S2, RRR (SR) Abdomen: Soft N/T Extremities: No Edema, No Calf Tenderness Neurology: alert, oriented, follow commands Other Exams right groin arteriotomy site intact, no erythema or swelling, neurovascular status to bilateral LE intact. Assessment Assessment 1. Acute anterior STEMI: S/P PCI/CHANCE to LAD and PTCA to diagonal. EF 25-30% per TTE. NYHA1 2. HTN controlled 3. s/p Renal transplantation: On chronic immunosuppression 4. Mild transaminitis: defer to PCP Recommendations 1. Lifevest encouraged. Cardiac rehab. Will reeval in 3 months for AICD consideration 2. Toprol, lipitor Lisinopril for now, will consider for outpt entresto 3. ECASA 325 mg/prasugrel 4. CHF education, daily wt, 2L FR. 5. LFTs repeat today 6. Follow up on October 25 at 2PM HENOK HOFFMAN MD 09/28/18 0722: CARDIO Progress Notes Assessment Assessment Patient seen and examined 09/27/18. Agree with MANAGER LABOR DELIVERY's assessment and plan. s/p PCI/CHANCE to LAD, chest pain-free. Telemetry did not show any significant arrhythmias. Ischemic cardiomyopathy clinically well compensated. Repeat 2-D echo in 3 months to evaluate the need for AICD implantation. CHUY JARA APRN Sep 27, 2018 10:29 HENOK HOFFMAN MD Sep 28, 2018 07:22
[2018-09-27] MEDS ORDERED: METO50TA4 PO (10:42)
--- NOTE | 2018-09-27 10:47 | PDOC3 ---
Discharge Summary Visit Information Date of Admission: Sep 26, 2018 Date of Discharge: Sep 27, 2018 Admitting Diagnosis Comment: STEMI status post PCI CHANCE /drug eluting stent placement to the left anterior descending artery and successful balloon PTCA to the diagonal branch REnal transplant on immunosuppressants Final Diagnosis Problems Medical Problems: (1) ST elevation (STEMI) myocardial infarction Status: Acute Brief Hospital Course Allergies Allergies Coded Allergies Type Severity Reaction Last Updated Verified No Known Drug Allergies 02/02/15 No Vital Signs Vital Signs Date Time Temp Pulse Resp B/P (MAP) Pulse Ox O2 Delivery O2 Flow Rate FiO2 09/27/18 10:20 77 113/75 09/27/18 07:00 98.3 16 98 Room Air 98.3 Lab Results Laboratory Tests Test 09/25/18 22:20 09/26/18 00:20 09/26/18 08:40 09/27/18 05:05 White Blood Count 10.9 x10^3/uL (4.0-11.0) 9.7 x10^3/uL (4.0-11.0) 9.6 x10^3/uL (4.0-11.0) Red Blood Count 5.72 x10^6/uL (4.30-5.70) 5.38 x10^6/uL (4.30-5.70) 4.88 x10^6/uL (4.30-5.70) Hemoglobin 17.2 g/dL (13.0-17.5) 16.0 g/dL (13.0-17.5) 14.8 g/dL (13.0-17.5) Hematocrit 51.1 % (39.0-53.0) 48.1 % (39.0-53.0) 43.7 % (39.0-53.0) Mean Corpuscular Volume 89 fL (79-100) 89 fL (79-100) 90 fL (79-100) Mean Corpuscular Hemoglobin 30 pg (25-35) 30 pg (25-35) 30 pg (25-35) Mean Corpuscular Hemoglobin Concent 34 g/dL (31-37) 33 g/dL (31-37) 34 g/dL (31-37) Red Cell Distribution Width 13.7 % (11.5-14.5) 13.5 % (11.5-14.5) 13.5 % (11.5-14.5) Platelet Count 185 x10^3/uL (140-400) 154 x10^3/uL (140-400) 138 x10^3/uL (140-400) Neutrophils (%) (Auto) 67 % (31-73) Lymphocytes (%) (Auto) 21 % (24-48) Monocytes (%) (Auto) 10 % (0-9) Eosinophils (%) (Auto) 2 % (0-3) Basophils (%) (Auto) 1 % (0-3) Neutrophils # (Auto) 7.3 x10^3uL (1.8-7.7) Lymphocytes # (Auto) 2.2 x10^3/uL (1.0-4.8) Monocytes # (Auto) 1.1 x10^3/uL (0.0-1.1) Eosinophils # (Auto) 0.2 x10^3/uL (0.0-0.7) Basophils # (Auto) 0.1 x10^3/uL (0.0-0.2) Prothrombin Time 12.3 SEC (11.7-14.0) 13.4 SEC (11.7-14.0) Prothromb Time International Ratio 0.9 (0.8-1.1) 1.1 (0.8-1.1) Sodium Level 139 mmol/L (136-145) 139 mmol/L (136-145) 137 mmol/L (136-145) Potassium Level 3.6 mmol/L (3.5-5.1) 3.9 mmol/L (3.5-5.1) 3.6 mmol/L (3.5-5.1) Chloride Level 101 mmol/L (98-107) 104 mmol/L (98-107) 103 mmol/L (98-107) Carbon Dioxide Level 30 mmol/L (21-32) 24 mmol/L (21-32) 24 mmol/L (21-32) Anion Gap 8 (6-14) 11 (6-14) 10 (6-14) Blood Urea Nitrogen 13 mg/dL (8-26) 12 mg/dL (8-26) 11 mg/dL (8-26) Creatinine 1.3 mg/dL (0.7-1.3) 1.0 mg/dL (0.7-1.3) 1.1 mg/dL (0.7-1.3) Estimated GFR (Cockcroft-Gault) 58.4 79.1 70.9 BUN/Creatinine Ratio 10 (6-20) 12 (6-20) Glucose Level 111 mg/dL (70-99) 125 mg/dL (70-99) 102 mg/dL (70-99) Calcium Level 9.9 mg/dL (8.5-10.1) 9.4 mg/dL (8.5-10.1) 8.7 mg/dL (8.5-10.1) Magnesium Level 1.7 mg/dL (1.8-2.4) 1.6 mg/dL (1.8-2.4) 2.0 mg/dL (1.8-2.4) Total Bilirubin 0.6 mg/dL (0.2-1.0) 1.1 mg/dL (0.2-1.0) Aspartate Amino Transf (AST/SGOT) 37 U/L (15-37) 428 U/L (15-37) Alanine Aminotransferase (ALT/SGPT) 42 U/L (16-63) 77 U/L (16-63) Alkaline Phosphatase 83 U/L (46-116) 70 U/L (46-116) Troponin I Quantitative 1.017 ng/mL (0.000-0.055) AU-Jst-W-Type Natriuretic Peptide 1243 pg/mL (0-124) Total Protein 7.6 g/dL (6.4-8.2) 6.4 g/dL (6.4-8.2) Albumin 4.2 g/dL (3.4-5.0) 3.5 g/dL (3.4-5.0) Albumin/Globulin Ratio 1.2 (1.0-1.7) 1.2 (1.0-1.7) Urine Opiates Screen Neg (NEG) Urine Methadone Screen Neg (NEG) Urine Barbiturates Neg (NEG) Urine Phencyclidine Screen Neg (NEG) Urine Amphetamine/Methamphetamine Neg (NEG) Urine Benzodiazepines Screen Neg (NEG) Urine Cocaine Screen Neg (NEG) Urine Cannabinoids Screen Neg (NEG) Urine Ethyl Alcohol Neg (NEG) Nasal Screen MRSA (PCR) Negative (Negative) Activated Partial Thromboplast Time 30 SEC (24-38) Triglycerides Level 110 mg/dL (0-150) Cholesterol Level 168 mg/dL (0-200) LDL Cholesterol, Calculated 91 mg/dL (0-100) VLDL Cholesterol, Calculated 22 mg/dL (0-40) Non-HDL Cholesterol Calculated 113 mg/dL (0-129) HDL Cholesterol 55 mg/dL (40-60) Cholesterol/HDL Ratio 3.1 Laboratory Tests Test 09/27/18 05:05 White Blood Count 9.6 x10^3/uL (4.0-11.0) Red Blood Count 4.88 x10^6/uL (4.30-5.70) Hemoglobin 14.8 g/dL (13.0-17.5) Hematocrit 43.7 % (39.0-53.0) Mean Corpuscular Volume 90 fL (79-100) Mean Corpuscular Hemoglobin 30 pg (25-35) Mean Corpuscular Hemoglobin Concent 34 g/dL (31-37) Red Cell Distribution Width 13.5 % (11.5-14.5) Platelet Count 138 x10^3/uL (140-400) Sodium Level 137 mmol/L (136-145) Potassium Level 3.6 mmol/L (3.5-5.1) Chloride Level 103 mmol/L (98-107) Carbon Dioxide Level 24 mmol/L (21-32) Anion Gap 10 (6-14) Blood Urea Nitrogen 11 mg/dL (8-26) Creatinine 1.1 mg/dL (0.7-1.3) Estimated GFR (Cockcroft-Gault) 70.9 Glucose Level 102 mg/dL (70-99) Calcium Level 8.7 mg/dL (8.5-10.1) Magnesium Level 2.0 mg/dL (1.8-2.4) Brief Hospital Course Mr. Garrido is a 48 old white male on immunosuppressants because of renal transplant 10 years, came in with STEMI. Underwent PCI of the above, see final diagnoses Tolerated well. New meds includes Effient 10, aspirin 325, statin, continue home beta luzma 50 XL once a day, and lisinopril at home seen and examined Dc < 30 dw [facility] consults: cards PRoc: stat [facility] with pci Discharge Information Condition at Discharge: Improved, Stable Follow Up: Weeks (cards as instructed) Disposition/Orders: D/C to Home Scheduled Aspirin (Aspirin Ec) 325 Mg Tablet., 325 MG PO DAILYWBKFT for stemi MDD 1, #30 Prescribed by: SOFÍA ARROYO on 09/27/18837 Atorvastatin Calcium (Atorvastatin Calcium) 20 Mg Tablet, 40 MG PO QHS for stemi, lipids MDD 1, #30 Prescribed by: SOFÍA ARROYO on 09/27/18 0838 Cetirizine Hcl (Zyrtec) 10 Mg Tablet, 10 MG PO DAILY, (Reported) Entered as Reported by: INOCENCIA LANDA RPH on 09/26/18936 Last Action: Continued on 09/26/18940 by SOFÍA ARROYO Metoprolol Succinate (Metoprolol Succinate ( Xl )) 25 Mg Tab.er.24h, 50 MG PO DAILY for htn, #30 Ref 0 (Reported) Entered as Reported by: FLORI CANO RN on 09/26/18912 Last Taken: 50 on Unknown Date & Time Last Action: Continued on 09/26/18940 by SOFÍA ARROYO Metoprolol Succinate (Toprol Xl) 50 Mg Tab.er.24h, 50 MG PO DAILY for htn, cad MDD 1, #60 Prescribed by: SOFÍA ARROYO on 09/27/18 104 Mycophenolate Sodium (Myfortic) 360 Mg Tablet., 360 MG PO BID, (Reported) Entered as Reported by: INOCENCIA LANDA RPH on 09/26/18936 Last Action: Converted on 09/26/18940 by SOFÍA ARROYO Prasugrel Hcl (Effient) 10 Mg Tablet, 10 MG PO DAILYWBKFT for stemi MDD 1, #30 Prescribed by: SOFÍA ARROYO on 09/27/18837 Prednisone (Prednisone) 2.5 Mg Tablet, 5 MG PO DAILY for Kidney transplant, (Reported) Entered as Reported by: FLORI CANO RN on 09/26/18913 Last Taken: 5 on Unknown Date & Time Last Action: Converted on 09/26/18940 by SOFÍA ARROYO Tacrolimus (Prograf) 1 Mg Capsule, 1 MG PO BID, (Reported) Entered as Reported by: INOCENCIA LANDA RPH on 09/26/18936 Last Action: Converted on 09/26/18940 by SOFÍA KING MD Sep 27, 2018 10:47
[2018-09-27 11:00] VITALS: BP 105/68
[2018-09-27 11:21] LABS: ALBUMIN 3.2 g/dL (3.4-5.0); DIRECT BILIRUBIN 0.2 mg/dL (0.0-0.2); TOTAL PROTEIN 5.9 g/dL (6.4-8.2)
[2018-09-27] MEDS ORDERED: LISI-338 PO (14:53)
[2018-09-27 15:00] VITALS: BP 108/68
--- NOTE | 2018-09-27 15:31 | NUR ---
PATIENT IS DISCHARGED TO HOME. DISCHARGE INSTRUCTIONS GIVEN. PIV AND HEART MONITOR REMOVED. ESCORTED PATIENT TO FRONT ENTRANCE INTO A PRIVATE VEHICLE.
[2018-09-27] MEDS ORDERED: SACUBITRIL/VALSARTAN 24/26MG TABLET. PO SCH (21:00)
== END 2018-09-27 15:30 | disposition home or self-care (01) | DRG 247 ==
LOC: ER 22:08 → 1 WEST ICU 22:20 → 2 SOUTH 09-26 18:49
PROVIDERS: ADMIT Internal Medicine; ATTEND Internal Medicine
PROC: 0270356 Dilation of Coronary Artery, One Artery, Bifurcation, with Two Drug-eluting Intraluminal Devices, Percutaneous Approach (ICD-10-PCS; principal; 2018-09-26)
PROC: 02703ZZ Dilation of Coronary Artery, One Artery, Percutaneous Approach (ICD-10-PCS; 2018-09-26)
PROC: 4A023N7 Measurement of Cardiac Sampling and Pressure, Left Heart, Percutaneous Approach (ICD-10-PCS; 2018-09-26)
PROC: B2151ZZ Fluoroscopy of Left Heart using Low Osmolar Contrast (ICD-10-PCS; 2018-09-26)
PROC: B2111ZZ Fluoroscopy of Multiple Coronary Arteries using Low Osmolar Contrast (ICD-10-PCS; 2018-09-26)
DX: I21.09 ST elevation (STEMI) myocardial infarction involving other coronary artery of anterior wall (principal); Z94.0 Kidney transplant status; I12.9 Hypertensive chronic kidney disease with stage 1 through stage 4 chronic kidney disease, or unspecified chronic kidney disease; I44.7 Left bundle-branch block, unspecified; N18.9 Chronic kidney disease, unspecified; Z82.49 Family history of ischemic heart disease and other diseases of the circulatory system; I25.2 Old myocardial infarction; Z79.899 Other long term (current) drug therapy; Z87.891 Personal history of nicotine dependence
CPT/HCPCS: 92921; 92928; 93458; 99291; G0269; 36415; 71045; 80048; 80053; 80061; 80076; 80197; 80307; 83735; 83880; 84484; 85025; 85027; 85610; 85730; 87641; 93005; 93306; 96374; 96375; 99152; 99153; C1725; C1760; C1769; C1874; C1887; C1892; J0583; J1644; J2250; J2405; J3010; J3475; J3490; J7030; J7507; J7512; Q9967; C1771

== ENCOUNTER → 2018-11-28 | Outpatient (CLI) | payer OTHER ==
[~2018-11-28] MED LIST: ASPI325T11 PO; ASPI81TA50 PO; ATOR20TA58 PO; CETI10TA22 PO; LISI-338 PO; METO-239 PO; METO50TA4 PO; MYCO360T PO; PRAS10TA9 PO; PRED2.5T PO; SACU1TAB PO; TACR1CAP4 PO
--- NOTE | 2018-11-28 13:44 | CARD ---
MR#: [id number] Date of Study: 11/28/2018 Ordering Physician: HENOK HOFFMAN, Referring Physician: HENOK HOFFMAN Tech: Shea Toribio MARY CARMEN APPROVED REPORT EXAM: LIMITED Two-dimensional and M-mode echocardiogram with Doppler and color Doppler. Other Information Quality : GoodHR: 68bpm Rhythm : NSR INDICATION Cardiomyopathy 2D DIMENSIONS RVDd2.7 (2.9-3.5cm)Left Atrium(2D)4.4 (1.6-4.0cm) IVSd0.8 (0.7-1.1cm)Aortic Root(2D)3.5 (2.0-3.7cm) LVDd5.0 (3.9-5.9cm)PWd0.9 (0.7-1.1cm) LVDs3.9 (2.5-4.0cm)FS (%) 21.8 % SV52.4 mlLVEF(%)42.0 (>50%) M-Mode DIMENSIONS IVSd0.73 (0.7-1.1cm)LVDd5.77 (4.0-5.6cm) PWd0.91 (0.7-1.1cm)FS (%) 16 % LVDs4.83 (2.0-3.8cm)ESV(Teich)109.0 ml LVEF(%)34 (>50%) Tricuspid Valve TR P. Jdmuacej887cn/sRAP AMZOEWDL4eaSl TR Peak Gr.36abAxNXDH63ycHj LEFT VENTRICLE The left ventricle is normal size. There is normal left ventricular wall thickness. The ejection frac tion is moderately impaired. The Ejection Fraction is 35%. The mid to distal inferoseptum, apex and m id to distal lateral wall is severely hypokinetic. Tissue Doppler imaging reveals moderate left ventr icular diastolic dysfunction. RIGHT VENTRICLE The right ventricle is normal size. There is normal right ventricular wall thickness. The right ventr icular systolic function is normal. ATRIA The left atrium is mildly dilated. The right atrium size is normal. The interatrial septum is intact with no evidence for an atrial septal defect or patent foramen ovale as noted on 2-D or Doppler imagi ng. AORTIC VALVE The aortic valve is normal in structure and function. The aortic valve is trileaflet. MITRAL VALVE The mitral valve is normal in structure and function. There is no evidence of mitral valve prolapse. There is no mitral valve stenosis. Doppler and Color-flow revealed trace mitral regurgitation. TRICUSPID VALVE The tricuspid valve is normal in structure and function. Doppler and Color Flow revealed trace tricus pid regurgitation. The PA pressure was estimated at 26 mmHg. There is no tricuspid valve prolapse or vegetation. There is no tricuspid valve stenosis. PULMONIC VALVE The pulmonic valve was not visualized. GREAT VESSELS The aortic root is normal in size. The ascending aorta is normal in size. PERICARDIAL EFFUSION There is no evidence of significant pericardial effusion. Critical Notification Critical Value: No <Conclusion> The mid to distal inferoseptum, apex and mid to distal lateral wall is severely hypokinetic. The ejection fraction is moderately impaired. The Ejection Fraction is 35%. Signed by : Adarsh Charlton, Electronically Approved : 11/28/2018 13:44:32
== END | disposition home or self-care (01) ==
LOC: ECHO 12:55
PROVIDERS: ATTEND Internal Medicine Cardiovascular Disease
DX: I25.5 Ischemic cardiomyopathy (principal); R00.8 Other abnormalities of heart beat
CPT/HCPCS: 93308; 93320; 93325

== ENCOUNTER 2018-12-15 10:39 | Observation (INO) | payer OTHER ==
[2018-12-15] VITALS (9 sets, daily range): BP systolic 93–122; BP diastolic 62–80
[~2018-12-15] VITALS: Ht 180.3 cm; Wt 83.9 kg
[~2018-12-15 10:39] MED LIST changes: -ASPI81TA50 PO; +IV RINGERS,LACTATED 1000ML 1,000 ML IV SCH; +LIDOCAINE 1% PF 2 ML VIAL. ID PRN; +MORPHINE SULFATE 2 MG/ML VIAL. IV PRN; +ONDANSETRON PF 4 MG/2 ML VIAL. IV PRN; +PROCHLORPERAZINE 10 MG/2 ML VIAL. IV PRN; +fentaNYL PF VIAL 100 MCG/2 ML VIAL IV PRN
--- NOTE | 2018-12-15 11:11 | EKG ---
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
[2018-12-15] MEDS ORDERED: ASPI81TA50 PO (11:23)
[2018-12-15] MEDS ORDERED: LIDOCAINE 2% PF 5 ML VIAL. ONE (11:31)
[2018-12-15] MEDS ORDERED: PHENYLEPHRINE in 0.9% NACL PF 1 MG/10 ML SYRINGE. IV ONE (11:31)
[2018-12-15] MEDS ORDERED: PROPOFOL 80 ML IV ONE (11:31)
[2018-12-15] MEDS ORDERED: MIDAZOLAM HCL/PF 2 MG/2 ML VIAL. ONE (11:32)
[2018-12-15] MEDS ORDERED: KETAMINE HCL IN NACL, ISO-OSM 50 MG/5 ML SYRINGE ONE (11:32)
[2018-12-15] MEDS ORDERED: ePHEDrine PF IN SALINE 50 MG/10 ML SYRINGE. IV ONE (11:32)
[2018-12-15 11:33] LABS: HEMATOCRIT 44.1 % (39.0-53.0); HEMOGLOBIN 14.9 g/dL (13.0-17.5); RED BLOOD COUNT 4.89 x10^6/uL (4.30-5.70); RED CELL DISTRIBUTION WIDTH 13.8 % (11.5-14.5); WHITE BLOOD COUNT 6.4 x10^3/uL (4.0-11.0)
[2018-12-15 11:44] LABS: CALCIUM 9.1 mg/dL (8.5-10.1); CREATININE 0.9 mg/dL (0.7-1.3); GFR 89.3
[2018-12-15 11:53] LABS: PROTHROMBIN TIME PATIENT 13.3 SEC (11.7-14.0)
[2018-12-15] MEDS ORDERED: BACITRACIN 50,000 UNIT in IV NORMAL SALINE 250ML 250 ML IRR ONE (12:00)
[2018-12-15] MEDS ORDERED: LIDOCAINE 2%/EPI 1:100,000 20 ML VIAL. ONE (12:23)
[2018-12-15] MEDS ORDERED: IODIXANOL 320 MG/ML 100 ML VIAL. ONE ×2 (12:52→13:45)
[2018-12-15] MEDS ORDERED: LIDOCAINE 2%/EPI 1:100,000 20 ML VIAL. IJ ONE (13:00)
--- NOTE | 2018-12-15 13:22 | NUR ---
IVF, monitoring, and sedation per anesthesia for pacemaker placement.
[2018-12-15] MEDS ORDERED: NO ANTICOAGULANT THERAPY. MC PRN (15:00)
--- NOTE | 2018-12-15 15:07 | CARD ---
MR#: [id number] Date of Study: 12/15/2018 Ordering Physician: HENOK JONES, Referring Physician: EHNOK JONES, Tech: APPROVED REPORT EXAM Successful implantation of Biotronik biventricular implantable cardioverter defibrillator/cardiac res ynchronization therapy-defibrillation Disposition threshold measurement of the time of implantation Fluoro time: 21.5 minutes Dose: 65 Gycm2 Contrast: 95cc INDICATIONS Primary prevention of sudden cardiac and cardiac resynchronization therapy in a patient with ch ronic systolic heart failure, ischemic cardiomyopathy with EF 30% and left bundle branch block with Q RS interval 148 ms. IMPLANTED DEVICES After explaining the risks, benefits and alternative options, informed consent was obtained from gomez ent. Patient was brought to the cardiac Chief Business Officer and his left chest and shoulder were prepped and breanna ped in the usual fashion. 30 mL of 2% lidocaine was infiltrated into the skin and subcutaneous tissue s for local anesthesia. An incision was made over the left infraclavicular fossa and using blunt diss ection and cautery a pocket was created. Venous access was obtained in the left subclavian vein and 9 Liberian coronary sinus sheath was inserted. With the help of contrast injections within the right atr ium using the TREY-2 catheter, the coronary sinus ostium was engaged and the sheath advanced. With th e balloontipped catheter inflated within the coronary sinus, a venogram was performed to identify the appropriate posterolateral vein for left ventricular lead placement. Subsequently, a Biotronik quadr ipolar left ventricular lead model Sentue ProMRI OTW QP L-85, serial #[id number] was advanced under flu oroscopy guidance and the tip was positioned in the high posterolateral vein. Venous access was obtained again and 10.5 and 7 Liberian sheaths inserted. A Biotronik active fixation right ventricle lead model Plexa ProMRI SD 65, serial #[id number] was positioned in the right ventricle apex under fluoroscopy guidance. Following this, a Biotronik I polar active fixation right atrial le ad model Solia serial #[id number] was positioned in the right atrial appendage under fluoroscopy eric olvera. The leads were all secured into place and attached to a Biotronik biventricular ICD/MUFFLE OPERATOR-D generat or model Ilivia 7HF-T QP DF4 IS4 [facility], serial #[id number]. This was placed in the pocket that was sub sequently closed in 3 layers. Hemostasis was secured. Ventricular fibrillation was then induced to check the defibrillation threshold. Patient successfully converted to sinus rhythm with 15 J shock therapy. The left ventricular lead showed a sensing amplit ude of 14.4 mV, impedance of 657 ohms and a threshold of 0.8 V. The right ventricular lead showed a s ensing amplitude of 9.5 mV, impedance of 549 ohms and a threshold of 0.7 V. The right atrial lead parveen wed a sensing amplitude of 4.2 mV, impedance of 822 ohms and a threshold of 0.7 V. Patient tolerated the procedure well. There were no immediate complications. CONCLUSION Successful implantation of Biotronik biventricular ICD/MUFFLE OPERATOR-D for primary prevention of sudden cardiac and cardiac resynchronization therapy in a patient with chronic systolic heart failure/ischemi c cardiomyopathy and left bundle branch block. Defibrillation thresholds were measured at the time of implantation. Signed by : Henok Jones, Electronically Approved : 12/15/2018 15:06:37
--- NOTE | 2018-12-15 15:19 | RAD ---
PORTABLE CHEST 1V History: Post pacemaker Comparison: September 25, 2018 Findings: Single view of the chest is submitted. There is now a triple lead left electronic cardiac device. One lead is near the ventricular apex likely left ventricle, another lead probably in region of the right ventricle, and more proximal lead region of right atrium. No pneumothorax is identified. There is no significant pleural fluid. Cardiac silhouette is similar. Impression: 1. There is now triple lead left electronic cardiac device, no pneumothorax identified. Electronically signed by: Lewis Beltran MD (12/15/2018 3:16 PM) [id number]
--- NOTE | 2018-12-15 18:15 | NUR ---
The patient, VIVIAN BARNES, 48 y/o, M admitted by HENOK HOFFMAN MD, was given written information regarding hospital policies, unit procedures and contact persons. Valuables were checked and patient resting in bed with immobilizer on, call light within reach
[2018-12-15] MEDS: HYDROmorphone 2 MG/ML VIAL IV PRN (22:54)
[2018-12-16] MEDS: HYDROmorphone 2 MG/ML VIAL IV PRN (02:44)
[2018-12-16 03:20] VITALS: BP 107/74
--- NOTE | 2018-12-16 10:30 | RAD ---
CHEST PA LATERAL Clinical indications: 1 day post pacemaker implantation COMPARISON: December 15, 2018. Findings: Mild blunting of the lateral costophrenic angles is again seen and is unchanged consistent with mild chronic pleural thickening. The posterior costophrenic angles are clear of pleural effusion. No acute lung infiltrate or pulmonary edema or pneumothorax is seen. 3-lead pacemaker is unchanged in position. The heart size, pulmonary vasculature, mediastinum and both alexis are unremarkable. Impression: No new radiographic abnormality is seen. Electronically signed by: Pascual Johnson MD (12/16/2018 10:27 AM) [facility]
--- NOTE | 2018-12-16 12:11 | NUR ---
Discharge Note: VIVIAN BARNES Discharge instructions and discharge home medications reviewed with Patient and a copy given. All questions have been answered and understanding verbalized. The following instructions and handouts were given: pacemaker care after Discontinued lines and drains: Peripheral IV intact x 2. Patient discharged to Home or Self Care with Spouse via Wheelchair Patients dressing removed from the pacemaker insertion steri strips present open to air.
== END 2018-12-16 12:14 | disposition home or self-care (01) ==
LOC: SURG 10:39 → 2 NORTH 12:13
PROVIDERS: ADMIT Internal Medicine Cardiovascular Disease; ATTEND Internal Medicine Cardiovascular Disease
DX: I25.5 Ischemic cardiomyopathy (principal); I10 Essential (primary) hypertension; I25.10 Atherosclerotic heart disease of native coronary artery without angina pectoris; E78.5 Hyperlipidemia, unspecified; Z94.0 Kidney transplant status; Z98.890 Other specified postprocedural states
CPT/HCPCS: 33225; 33249; 36415; 71045; 71046; 80048; 85027; 85610; 93005; 93566; 93641; 96365; 96366; 96368; 96375; 96376; C1769; C1895; C1898; C1900; C2621; G0378; G0379; J0171; J0690; J0696; J1170; J2001; J2250; J2370; J2405; J2704; J3010; J3490; J7050; J7030

== ENCOUNTER → 2019-11-07 | Outpatient (CLI) | payer OTHER ==
[2018-12-15 23:34] VITALS: BP 93/69
[~2019-11-07] MED LIST changes: +ASPI81TA50 PO; -CETI10TA22 PO; +CETI10TA24 PO; -IV RINGERS,LACTATED 1000ML 1,000 ML IV SCH; -LIDOCAINE 1% PF 2 ML VIAL. ID PRN; -MORPHINE SULFATE 2 MG/ML VIAL. IV PRN; -ONDANSETRON PF 4 MG/2 ML VIAL. IV PRN; -PROCHLORPERAZINE 10 MG/2 ML VIAL. IV PRN; -TACR1CAP4 PO; +TACR1CAP5 PO; -fentaNYL PF VIAL 100 MCG/2 ML VIAL IV PRN
--- NOTE | 2019-11-07 15:28 | CARD ---
MR#: [id number] Date of Study: 11/07/2019 Ordering Physician: HENOK HOFFMAN, Referring Physician: HENOK HOFFMAN Tech: Radhika Vogel RDCS APPROVED REPORT EXAM: Two-dimensional and M-mode echocardiogram with Doppler and color Doppler. Other Information Quality : Good INDICATION Ischemic Cardiomyopathy Surgery/Intervention ICD/Pacemaker: Date: 2018 2D DIMENSIONS RVDd2.3 (2.9-3.5cm)Left Atrium(2D)4.2 (1.6-4.0cm) IVSd0.9 (0.7-1.1cm)Aortic Root(2D)3.1 (2.0-3.7cm) LVDd4.4 (3.9-5.9cm)LVOT Diameter2.2 (1.8-2.4cm) PWd0.8 (0.7-1.1cm)LVDs3.3 (2.5-4.0cm) FS (%) 30.0 %SV61.0 ml LVEF(%)60.0 (>50%) Aortic Valve AoV Peak Maxim.91.8cm/sAoV VTI16.6cm AO Peak GR.3.4mmHgLVOT Peak Maxim.95.5cm/s AO Mean GR.2mmHgAVA (VMAX)3.99cm2 JAN (VTI)4.40cm2 Mitral Valve MV E Knwrfmqy15.0cm/sMV DECEL GJIQ667wy MV A Mwjjzfwd80.6cm/sE/A Ratio1.5 Tricuspid Valve TR P. Hsnkgzry873yu/sRAP WDWRUDSL8iwPj TR Peak Gr.32drWuAHKT66kkLl Pulmonary Vein S1 Pidyvfhv42.1cm/sD2 Ljtamend59.2cm/s LEFT VENTRICLE The left ventricle is normal size. There is normal left ventricular wall thickness. Left ventricle sy stolic function is mildly impaired. The Ejection Fraction is 40-45%. Apical motion consistent with pa cemaker activation. Tissue Doppler imaging reveals moderate left ventricular diastolic dysfunction. RIGHT VENTRICLE The right ventricle is normal size. The right ventricular systolic function is normal. There is a pac emaker/ICD lead in the right ventricle. ATRIA The left atrium is mildly dilated. The right atrium size is normal. A pacemaker/ICD is seen in the ri ght atrium consistent with history. The interatrial septum is intact with no evidence for an atrial s eptal defect or patent foramen ovale as noted on 2-D or Doppler imaging. AORTIC VALVE The aortic valve is calcified but opens well. Doppler and Color Flow revealed no significant aortic r egurgitation. There is no significant aortic valvular stenosis. MITRAL VALVE The mitral valve is normal in structure and function. There is no evidence of mitral valve prolapse. There is no mitral valve stenosis. Doppler and Color-flow revealed trace mitral regurgitation. TRICUSPID VALVE The tricuspid valve is normal in structure and function. Doppler and Color Flow revealed trace tricus pid regurgitation. The PA pressure was estimated at 21 mmHg. There is no tricuspid valve stenosis. PULMONIC VALVE The pulmonary valve is normal in structure and function. Doppler and Color Flow revealed mild pulmoni c valvular regurgitation. There is no pulmonic valvular stenosis. GREAT VESSELS The aortic root is normal in size. The ascending aorta is normal in size. The IVC is normal in size a nd collapses >50% with inspiration. PERICARDIAL EFFUSION There is no evidence of significant pericardial effusion. Critical Notification Critical Value: No <Conclusion> Left ventricle systolic function is mildly impaired. The Ejection Fraction is 40-45%. Apical motion consistent with pacemaker activation. There is a pacemaker/ICD lead in the right atrium and ventricle. Trace mitral regurgitation. Trace tricuspid regurgitation. The PA pressure was estimated at 21 mmHg. There is no evidence of significant pericardial effusion. Signed by : Henok Hoffman, Electronically Approved : 11/07/2019 15:27:53
== END | disposition home or self-care (01) ==
LOC: ECHO 09:51
PROVIDERS: ATTEND Internal Medicine Cardiovascular Disease
DX: I08.8 Other rheumatic multiple valve diseases (principal); I25.5 Ischemic cardiomyopathy
CPT/HCPCS: 93306

== ENCOUNTER → 2020-05-09 | Outpatient (CLI) | payer OTHER ==
[2018-12-15 23:34] VITALS: BP 93/69
[~2020-05-09] MED LIST changes: -CETI10TA24 PO; +CETI10TA74 PO; +REGADENOSON 0.4 MG/5 ML DISP.SYRIN. IV ONE
--- NOTE | 2020-05-09 16:44 | RAD ---
MR#: [id number] Date of Study: 05/09/2020 Ordering Physician: HENOK HOFFMAN, Referring Physician: LINDA BARLOW Tech: RT Rd Colin) (N) APPROVED REPORT Test Type: Pharmacological Stress Nurse/Tech: Anish Holt RN Test Indications: CAD Cardiac History: stent 2019, HTN, PPM AICD, Chemotherapy Medications: See Electronic Medical Record Medical History: See Electronic Medical Record Resting ECG: AV paced Resting Heart Rate: 60 bpm Resting Blood Pressure: 120/78mmHg Pretest Chest Pain: None Nurse/Tech Notes Lungs CTA, S1S2 Consent: The procedure was explained to the patient in lay terms. Informed consent was witnessed. Petros eout was entered into [employer]. History and Stress Test performed by RT Rd Dillard) (N) Pharm. Details Pharmacologic stress testing was performed using 0.4mg per 5ml of regadenoson given intravenously ove r 7-10 seconds. Stress Symptoms No chest pain or symptoms. POST EXERCISE Reason for Termination: Infusion complete Max HR: 109 bpm Max Blood Pressure: 119/75mmHg Blood Pressure response to exercise: Normal blood pressure response during stress. Heart Rate response to exercise: Normal response Chest Pain: No. Arrhythmia: No. ST Change: No. INTERPRETATION Stress EKG Conclusion: Non-diagnostic EKG due to pacing artifact. Imaging Protocol IMAGE PROTOCOL: Rest Tc-99m/stress Tc-99m 1 day Rest: Stress: Viability: Radiopharm.Tc99m BytanahlyOv18w Sestamibi Dose10.7mCi 31.8mCi Duration 13min. 13min. Img Date 05/09/2020 05/09/2020 Inj-Img Thdt74nps. 60min. Rest Admin Site:IV - Right AntecubitalAdministrator:RT Rd Colin)(N) Stress Admin Site: IV - Right AntecubitalAdministrator: RT Rd Dillard)(N) STRESS DATA End Diast. Vol.103.0mlLVEDV index BSA52.0ml End Syst. Vol.41.0mlLVESV index BSA20.0ml Myocardial Fnql765.0gEject. Buimcjme16.0% Stress Scores Regional WT0.00Summed WT10.00 Regional WM0.00Summed WM14.00 LV Perfusion There is moderate sized FIXED mid to distal anterior/anteroseptal defect consistent with prior infarc t without any significant ischemia. There is a moderate sized FIXED basal to mid inferolateral defect consistent with prior infart withou t reagan-infarct ischemia. Wall Motion Normal LV function. EF 55% LV Perf. Quant 17 Seg. SSS12.00 17 Seg. SRS18.00 17 Seg. SDS0.00 Stress Defect Extent (% LAD)40.60Rest Defect Extent (% LAD)46.30Rev. Defect Extent (% LAD)2.50 Stress Defect Extent (% LCX) 35.00Rest Defect Extent (% LCX)30.00Rev. Defect Extent (% LCX)20.00 Stress Defect Extent (% RCA)6.70Rest Defect Extent (% RCA)11.10Rev. Defect Extent (% RCA)0.00 Stress Defect Extent (% ESTIVEN)29.60Rest Defect Extent (% ESTIVEN)31.70Rev. Defect Extent (% ESTIVEN)5.00 Other Information Quality:Average Risk Assessment: Moderate Risk Conclusion 1. Non-diagnostic EKG due to pacing artifact. 2. Fixed LAD and LCx territory defects consistent with prior infarct without active ischemia. Alterna tively, in the setting of normal LV function, this may correlate with artifacts related to pacing parmjit ds, clinical correlation recommended. 3. Normal LV systolic function. EF 55% 4. Moderate risk for future CV events. Signed by : Adarsh Charlton, Electronically Approved : 05/09/2020 13:28:25
== END ==
LOC: NM 09:06
PROVIDERS: ATTEND Internal Medicine Cardiovascular Disease
DX: I25.10 Atherosclerotic heart disease of native coronary artery without angina pectoris (principal); I10 Essential (primary) hypertension; Z95.5 Presence of coronary angioplasty implant and graft
CPT/HCPCS: 78452; 93017; A9500; J2785

== ENCOUNTER → 2020-12-10 | Outpatient (CLI) | payer OTHER ==
[2018-12-15 23:34] VITALS: BP 93/69
[~2020-12-10] MED LIST changes: -LISI-338 PO; +LISI-517 PO; -REGADENOSON 0.4 MG/5 ML DISP.SYRIN. IV ONE
--- NOTE | 2020-12-11 20:34 | CARD ---
MR#: [id number] Date of Study: 12/10/2020 Ordering Physician: HENOK HOFFMAN, Referring Physician: HENOK HOFFMAN, Tech: Cyndi Samayoa [facility] APPROVED REPORT EXAM: Two-dimensional and M-mode echocardiogram with Doppler and color Doppler. Other Information Quality : AverageHR: 71bpm INDICATION Cardiac Disease: CAD Surgery/Intervention ICD/Pacemaker: Date: 2018 RISK FACTORS Hypertension Hyperlipidemia Tobacco 2D DIMENSIONS RVDd2.6 (2.9-3.5cm)Left Atrium(2D)3.1 (1.6-4.0cm) IVSd1.0 (0.7-1.1cm)Aortic Root(2D)3.3 (2.0-3.7cm) LVDd5.1 (3.9-5.9cm)LVOT Diameter2.1 (1.8-2.4cm) PWd0.9 (0.7-1.1cm)LVDs2.8 (2.5-4.0cm) FS (%) 43.8 %SV90.7 ml LVEF(%)70.7 (>50%) Aortic Valve AoV Peak Maxim.107.0cm/sAoV VTI18.5cm AO Peak GR.4.6mmHgLVOT Peak Maxim.88.5cm/s LVOT VTI 16.22cmAO Mean GR.2mmHg JAN (VMAX)2.17nd8LJO (VTI)3.09cm2 Mitral Valve MV E Jaqdrfrv76.8cm/sMV DECEL [id number] MV A Ijyoplgo02.0cm/sMV MSL75nb E/A Ratio1.1MVA (PHT)2.67cm2 TDI E/Lateral E'7.6E/Medial E'9.5 Pulmonary Valve PV Peak Wqfmrqpw09.0cm/sPV Peak Grad.2mmHg Tricuspid Valve TR P. Qikdxxpp775fp/sRAP [id number] TR Peak Gr.41inKcMSBT56gzUh LEFT VENTRICLE The left ventricle is normal size. There is normal left ventricular wall thickness. The left ventricu lar systolic function is mildly decreased. The Ejection Fraction is 45%. The apex is moderately hypok inetic. Transmitral Doppler flow pattern is Grade II-pseudonormal filling dynamics. RIGHT VENTRICLE The right ventricle is normal size. There is normal right ventricular wall thickness. The right ventr icular systolic function is normal. There is a pacemaker lead in the right ventricle. ATRIA The left atrium is borderline dilated. The right atrium is borderline dilated. The interatrial septum is intact with no evidence for an atrial septal defect or patent foramen ovale as noted on 2-D or Do ppler imaging. AORTIC VALVE The aortic valve is normal in structure and function. Doppler and Color Flow revealed no significant aortic regurgitation. There is no significant aortic valvular stenosis. Calculated aortic valve area is 3.24 cm2 with maximum pressure gradient of 5 mmHg and mean pressure gradient of 3 mmHg. MITRAL VALVE The mitral valve is normal in structure and function. There is no evidence of mitral valve prolapse. There is no mitral valve stenosis. Doppler and Color-flow revealed trace mitral regurgitation. TRICUSPID VALVE The tricuspid valve is normal in structure and function. Doppler and Color Flow revealed trace tricus pid regurgitation with an estimated PAP of 22 mmHg. There is no tricuspid valve stenosis. PULMONIC VALVE Doppler and Color Flow revealed trace pulmonic valvular regurgitation. There is no pulmonic valvular stenosis. GREAT VESSELS The aortic root is normal in size. The IVC was not visualized. PERICARDIAL EFFUSION There is no evidence of significant pericardial effusion. Critical Notification Critical Value: No <Conclusion> The left ventricular systolic function is mildly decreased. The Ejection Fraction is 45%. The apex is moderately hypokinetic. There is a pacemaker lead in the right ventricle. Signed by : Adarsh Charlton, Electronically Approved : 12/11/2020 20:33:21
== END ==
LOC: ECHO 14:56
PROVIDERS: ATTEND Internal Medicine Cardiovascular Disease
DX: I25.10 Atherosclerotic heart disease of native coronary artery without angina pectoris (principal)
CPT/HCPCS: 93306

== ENCOUNTER → 2021-08-28 | Day surgery (SDC) | payer OTHER ==
[~2021-08-28] VITALS: Ht 180.3 cm; Wt 85.9 kg
[~2021-08-28] MED LIST changes: +LIDOCAINE 2% PF 5 ML VIAL. ONE; -LISI-517 PO; +LISI5TAB15 PO; +PROPOFOL 10 MG/ML (20ML) VIAL. IV ONE
[2021-08-28 06:43] VITALS: BP 131/94
[2021-08-28 07:50] VITALS: BP 122/84
== END | disposition home or self-care (01) ==
LOC: ENDOS 06:18
PROVIDERS: ATTEND Internal Medicine Gastroenterology
DX: Z12.11 Encounter for screening for malignant neoplasm of colon (principal); K64.0 First degree hemorrhoids; K63.89 Other specified diseases of intestine; I10 Essential (primary) hypertension; Z79.82 Long term (current) use of aspirin; Z79.899 Other long term (current) drug therapy; Z98.890 Other specified postprocedural states; Z72.89 Other problems related to lifestyle; Z80.0 Family history of malignant neoplasm of digestive organs
CPT/HCPCS: 45378; J2704